=== PATIENT | female | born 1945 | race Caucasian/White ===

== ENCOUNTER 2024-08-20 22:34 | Inpatient (IN) | payer MEDICARE, OTHER, SELFPAY ==
[2024-08-20] VITALS (7 sets, daily range): BP systolic 120–144; BP diastolic 63–77; BMI 48.0
--- NOTE | 2024-08-20 16:18 | ED.PDOC.TRB ---
ED Provider Triage
-
Patient seen by provider in Triage?: Seen in Triage
Attestation: A medical screening examination has been initiated by a qualified medical provider. Based on the assessment performed at this time, it has been determined that an emergent medical condition may exist and the patient has been informed
that further medical evaluation and possible additional diagnostic testing may be needed.
HPI: 79yoF here with positive blood cultures as an outpatient. She reports SOB x 6 months. No fevers or chills. I called the PCP's office and 1 blood culture was checked last week which was positive for gram positive cocci in clusters.
GENERAL: Alert , in no apparent distress
EYE: No visual abnormalities.
NECK: Trachea midline
ENT: No visible abnormalities.
LUNGS: No acute respiratory distress
NEUROLOGICAL: Alert and oriented
SKIN: Skin intact. No visible changes.
MUSCULOSKELETAL: Moving extremities normally
PSYCH: Normal and appropriate interaction.
This is a medical evaluation conducted in person to initiate diagnostic evaluation and provide initial therapeutics. Please see further documentation by the treating clinician.
CBC and CMP ordered.
[2024-08-20 16:43] LABS: % Basophils 0.7 % (0-2); % Eosinophils 0.7 % (0-6); % Lymphocytes 10.6 % (20.5-51.1); % Monocytes 5.7 % (1.7-9.3); % Neutrophils 81.3 % (42.2-75.2); Absolute Basophils 0.1 10^3/uL (0-0.2); Absolute Eosinophils 0.1 10^3/uL (0-0.7); Absolute Immature Granulocytes 0.1 10^3/uL (0-0.05); Absolute Lymphocytes 1.4 10^3/uL (1.2-3.4); Absolute Monocytes 0.8 10^3/uL (0.1-0.6); Absolute Neutrophils 10.9 10^3/uL (1.4-6.5); Hematocrit 33.1 % (37.0-47.0); Mean Corp Hgb Conc. 33.2 g/dL (33.0-37.0); Mean Corpuscular Hgb 27.6 pg (27.0-31.0); Nucleated Red Blood Cells % 0 %; Red Blood Cell Count 3.99 10^6/uL (4.20-5.40); Red Cell Dist. Width 15.7 % (11.5-14.5); White Blood Cell Count 13.4 10^3/uL (4.8-10.8)
[2024-08-20 17:14] LABS: Mean Platelet Volume 9.4 fL (7.4-10.4); Platelet Count 257 10^3/uL (130-400)
[2024-08-20 17:21] LABS: ALT (SGPT) 15 U/L (0-35); AST (SGOT) 39 U/L (14-36); Albumin 4.2 g/dl (3.5-5.0); Alkaline Phosphatase 112 U/L (38-126); Blood Urea Nitrogen 22 mg/dl (7-17); Calcium 9.4 mg/dl (8.4-10.2); Carbon Dioxide 21 mmol/L (22-30); Chloride 103 mmol/L (98-107); Glucose 126 mg/dl (70-99); Potassium 4.7 mmol/L (3.5-5.1); Sodium 140 mmol/L (135-145); Total Bilirubin 0.7 mg/dl (0.2-1.3); Total Protein 7.4 g/dl (6.3-8.2); eGFR 58.02
[2024-08-20 21:13] LABS: Lactic Acid 1.1 mmol/L (0.7-2.0)
[2024-08-20 21:17] LABS: NT-proBNP 367 pg/ml; Troponin I < 0.012 ng/ml
--- NOTE | 2024-08-20 21:19 | ED.GENMED ---
History of Present Illness
General
Chief Complaint: Breathing Problem
Source: patient and family
Exam Limitations: none
Time Seen by Provider: 08/20/24 19:51
Nursing documentation reviewed up to this point in time: agreed with
History of Present Illness
History of Present Illness:
The patient is a 79-year-old female past medical history of hypertension GERD, pulmonary fibrosis presenting to the emergency department today after being called and told that she had a positive blood culture done as an outpatient by her internal
medicine doctor that works with an. She claims that she has had shortness of breath over the past few months worsening over the past few weeks and has significant decreased exercise tolerance. She had an assessment by a youth care specialist as well as
primary care doctor. She ended up having an echocardiogram recently that showed a vegetation on the mitral valve. They were concerned of possible endocarditis and sent her to the ER for further assessment. She denies any specific fevers no
current chest pain does feel somewhat shortness of breath even at rest but significantly with exertion at this point. Has noted some vague peripheral swelling over the past few months as well.
Review of Systems
Review of Systems
Allergies reviewed?: Yes
All Other Systems: ROS reviewed and negative except as documented in HPI and ROS
Phy Exam
Physical Exam
Physical Exam:
GENERAL: Alert , in no apparent distress
EYE: pupils equal and reactive
NECK: Supple, no significant adenopathy.
ENT: o/p clr, mmm.
CARDIAC: Regular rate and rhythm .
LUNGS: Clear breath sounds bilaterally, no acute respiratory distress, no wheezes/rales/rhonchi
ABDOMEN: Soft, without focal tenderness, no r/g, no cvat
NEUROLOGICAL: Alert and oriented, no focal neuro deficits
SKIN: Warm and dry, skin intact.
MUSCULOSKELETAL: [place]man of edema to the peripheral lower extremities, well perfused.
PSYCH: Normal and appropriate interaction.
Scores
Heart Failure Risk
Heart Failure Risk Score: Not Applicable
Course
Orders/Labs/Results
Orders:
Orders
08/20/24 16:26
Complete Blood Count/With Diff Urgent
Comprehensive Metabolic Panel Urgent
08/20/24 20:17
EKG [Electrocardiogram (*1)] Urgent
Reason for Study: Fatigue / Weakness
EKG- Treatment ONCE
08/20/24 20:39
BNP [NT-proBNP] Urgent
Lactic Acid Urgent
Troponin I Urgent
Blood Culture Urgent
SPENCER Source: Blood/Venous
Specimen Description:
08/20/24 20:43
Blood Culture Routine
SPENCER Source: Blood/Venous
Specimen Description:
08/20/24 20:55
Vancomycin [Vancocin] 2,000 mg 0.9% Sodium Chloride 500 ml [Nss] 500 ml IV NOW
08/20/24 21:17
Blood Culture Urgent
SPENCER Source: Blood/Venous
Specimen Description:
Abnormal Lab Results
08/20/24
16:26
WBC 13.4 H 10^3/uL
(4.8-10.8)
RBC 3.99 L 10^6/uL
(4.20-5.40)
Hgb 11.0 L g/dL
(12.0-16.0)
Hct 33.1 L %
(37.0-47.0)
RDW 15.7 H %
(11.5-14.5)
Abs Immat Gran (auto) 0.1 H 10^3/uL
(0-0.05)
Absolute Neuts (auto) 10.9 H 10^3/uL
(1.4-6.5)
Absolute Monos (auto) 0.8 H 10^3/uL
(0.1-0.6)
Immature Gran % 1.0 H %
(0-0.5)
Neutrophils % 81.3 H %
(42.2-75.2)
Lymphocytes % 10.6 L %
(20.5-51.1)
Carbon Dioxide 21 L mmol/L
(22-30)
BUN 22 H mg/dl
(7-17)
Glucose 126 H mg/dl
(70-99)
AST 39 H U/L
(14-36)
08/20/24 16:26
08/20/24 16:26
Vital Signs
Initial and Last Documented VS:
Initial Vital Signs
Temp Pulse Resp BP Pulse Ox
97.8 F 79 16 138/71 99
08/20/24 16:11 08/20/24 16:11 08/20/24 16:11 08/20/24 16:11 08/20/24 16:11
Last Documented Vital Signs
Temp Pulse Resp BP Pulse Ox
97.8 F 77 25 131/65 95
08/20/24 16:11 08/20/24 19:45 08/20/24 19:45 08/20/24 19:38 08/20/24 19:45
MDM/Problems Addressed
MDM/Problems Addressed:
79-year-old female presenting to the emergency department today with concerns of a positive blood culture with gram-positive cocci in clusters as well as a echo a few days ago that showed a vegetation potentially on the mitral valve. Patient has
had progressive shortness of breath recently. On arrival vital signs are normal patient in no distress does claim to have ongoing shortness of breath. No chest no specific fevers white count of 13.4 here otherwise troponin negative. Concerning
the patient's outpatient findings plan to admit for IV antibiotics and further monitoring and assessment.
*Critical Care Note
Total Time (30-74mins, 75-104mins- exclusive of procedures): Not Applicable
ED Attending Note
-
Portions of this chart may have been created with voice recognition software.� Occasional wrong word or��sound alike� substitutions may have occurred due to the inherent limitations of voice recognition software.
Discharge Plan
Departure
Patient Disposition: Admit
Date of Disposition: 08/20/24
Time of Disposition: 21:21
Admit to: Telemetry
Admit to doctor: Yann
Presentation/result/management discussed w/ accepting MD/DO: Hospitalist
Patient with high blood pressure during this ER visit?: No
Condition: Good
Covid-19: Not Applicable
Discharge Problem:
Mitral valve vegetation, Blood bacterial culture positive
Prescriptions:
No Action
spironolacton-hydrochlorothiaz 25-25 mg Tablet
1 tab PO DAILY
pramipexole 0.5 mg Tablet
0.5 mg PO HS
lansoprazole 30 mg Capsule,Delayed Release(Dr/Ec)
30 mg PO BID
verapamil 240 mg Tablet Extended Release
240 mg PO DAILY
montelukast 10 mg Tablet
10 mg PO HS
fluticasone propionate [Flonase] 50 mcg/actuation [place],Suspension
1 spray INTRANASAL HSPRN PRN (Reason: conjestion)
loratadine [Claritin] 10 mg Tablet
10 mg PO DAILY
potassium chloride [Klor-Con M10] 10 mEq Tablet,Er Particles/Crystals
10 meq PO DAILY
duloxetine 20 mg Capsule,Delayed Release(Dr/Ec)
20 mg PO DAILY
fluconazole 150 mg Tablet
150 mg PO DAILY
Patient Comments:
08/20/24: Unsure if patient takes this medication still, no pharmacy fill records or eCW records of patient taking this.
Interventions
Interventions:
*ED COVID-19 Vaccine History Last Done: 08/20/24 16:16
Discharge Date and Time
Print Language: UZBEK
--- NOTE | 2024-08-20 21:31 | W.PN.UPDATE ---
Update Note
Progress Note Update
This note serves as an addendum to the H&P by pinsetter mechanic helper KAREN Patience BARROSO
HPI
79F HX HTN, GERD came to ER for POS BCx sent as an outpatient.
- retrospectively reports SOB x 6 months.
- Denied fever at home but reports chills. No rigors
- PCP's office: single BCx was sent. POS for gram positive cocci in clusters.
- No recent dental procedure
Per OP ECHO: pending official report but told potential Mitral valve vegetation.
PHX: as above
Vital Signs
Temp Pulse Resp BP Pulse Ox
97.8 F 77 25 131/65 95
08/20/24 16:11 08/20/24 19:45 08/20/24 19:45 08/20/24 19:38 08/20/24 19:45
PE
Gen: Morbidly Obese , not toxic looking
HEENT: anicteric
Neck: supple, no LAD
Lungs: symmetric AE
Cor: RR S1 S2
Abdomen: obese
TELEPHONE STATION REPAIRER: AAO3, NFND
MS: no peripheral signs of endocarditis
Psych: appropriates
Data
Laboratory Tests
08/20/24 08/20/24
16:26 20:39
WBC 13.4 H
Hgb 11.0 L
Plt Count 257
Neutrophils % 81.3 H
Carbon Dioxide 21 L
BUN 22 H
Creatinine 1.0
eGFR 58.02
Lactic Acid Pending
Pending LA
Pending proBNP
BCX time 3 sent
No prior hospitalist admission:
ASSESSMENT & PLAN
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
OP ECHO : potential Mitral valve vegetation.
Clinically no peripheral signs of endocarditis
DDX: MV endocarditis
Hemodynamically stable
- Repeat BCx times 3 sent
- check UA for microscopic hematuria
- Empiric IV Cefazolin in place of Vanco
- Obtain records form PCP office
- CBC Card consult for further evalaution for MERARY ?
- ID consult
HX vagina yeast infection with any ABx
- cont. OP Fluconazole
HX BRANDI
Morbidly Obese/ Class III Obesity ( BMI 48)
- cont CPAP HS
HX HTN
- cont. Spironolactone and verapamil
DVT Px: SQH
Full code
IP TLM
[2024-08-20] MEDS: VANCOCIN 540 MG IV (21:41)
--- NOTE | 2024-08-20 21:47 | HPS.HSE ---
Family Physician
-
Family Physician:
Chief Complaint
-
Positive blood cultures
History of Present Illness
Patient is a 79 y/o female past medical history of hypertension, and obstructive sleep apnea who was sent from her primary cardiologists office for positive blood cultures. Patient has been undergoing work-up for chronic shortness of breath. On
Tuesday she has an echocardiogram that raised concern for a possible vegetation on the mitral valve. Patient has blood cultures drawn on Tuesday, and then received a call the blood cultures were positive and to go to the emergency department for
evaluation. Patient denies any fevers, sweats, chills, chest pain or palpitations. She reports dental work completed last year that all has to be redone, but denies any recent dental cleanings.
Medical History
Past Medical History
Past Medical History: Reports Other
Additional Past Medical History:
Diabetes Mellitus, Type II
Essential Hypertension
Obstructive Sleep Apnea
GERD
Restless Leg Syndrome
Past Surgical History: Reports Other
Additional Past Surgical History:
Back Surgery
Social History
Tobacco: Non-smoker
Alcohol: Other (Once a year)
Living: With Family
Family History
Family History: Not pertinent
Allergies / Home Medications
Allergies reflects when Allergies were last updated in [employer].
Home Medications with original date entered in [employer]
Allergy/Medication List:
Allergies
Allergy/AdvReac Type Severity Reaction Status Date / Time
adhesive Allergy Unknown Verified 08/20/24 16:10
Home Medications
duloxetine 20 mg capsule,delayed release 20 mg PO DAILY 08/20/24
fluconazole 150 mg tablet 150 mg PO DAILY 08/20/24
fluticasone propionate 50 mcg/actuation nasal spray,suspension 1 spray intranasal HSPRN PRN conjestion 08/20/24
lansoprazole 30 mg capsule,delayed release 30 mg PO BID 08/20/24
loratadine 10 mg tablet (Claritin) 10 mg PO DAILY 08/20/24
montelukast 10 mg tablet 10 mg PO HS 08/20/24
potassium chloride 10 mEq tablet,extended release(part/cryst) (Klor-Con M) 10 meq PO DAILY 08/20/24
pramipexole 0.5 mg tablet 0.5 mg PO HS 08/20/24
spironolactone 25 mg-hydrochlorothiazide 25 mg tablet 1 tab PO DAILY 08/20/24
verapamil 240 mg tablet,extended release 240 mg PO DAILY 08/20/24
Review of Systems
-
A 12 point ROS was completed and negative except as noted: Yes
Constitutional: Denies Fever or Chills
Respiratory: Reports Cough and Trouble Breathing
Cardiac: Denies Chest Pain or Palpitations
Physical Exam
Vital Signs
Vital Signs
Temp Pulse Resp BP Pulse Ox
97.8 F 77 25 131/65 95
08/20/24 16:11 08/20/24 19:45 08/20/24 19:45 08/20/24 19:38 08/20/24 19:45
Physical Exam
General: Comfortable and Conversant
HEENT: Anicteric, Moist mucous membranes and Other (Poor Dentition)
Respiratory: Clear and Non Labored Respirations
Cardiac: S1/S2 and Regular Rhythm
GI: Soft, Non Tender and Other (Protuberant)
Rectal: Deferred by Provider
Musculoskeletal: No Clubbing, No Cyanosis and Other (+2 edema bilateral lower extremities)
Skin: Warm and Dry
Neuro: Awake, Alert, Oriented and Nonfocal/grossly intact
Laboratory Results
-
08/20/24 16:26
08/20/24 16:26
Laboratory Results
Lactic Acid 1.1 mmol/L (0.7-2.0) 08/20/24 20:39
Total Bilirubin 0.7 mg/dl (0.2-1.3) 08/20/24 16:26
AST 39 U/L (14-36) H 08/20/24 16:26
ALT 15 U/L (0-35) 08/20/24 16:26
Alkaline Phosphatase 112 U/L (38-126) 08/20/24 16:26
Troponin I < 0.012 ng/ml 08/20/24 20:39
Data Reviewed
-
Lab Data: Labs Reviewed by me
Old Records: Reviewed
Impression/Plan
-
Blood Cultures with Gram Positive Cocci in Cluster with associated Mitral Valve Echodensity raises concern for Endocarditis
-Consult Infectious Disease
-Consult Cardiology
-Obtain repeat blood cultures
-NPO after midnight for possible MERARY in AM
-Continue Ancef
Diabetes Mellitus, Type II
-Diet controlled per outpatient cardiology note
-Check HgbA1c
-Monitor sugars and continue coverage insulin
Essential Hypertension
-Continue Spironolactone/hydrochlorothiazide and Verapamil
Restless Leg Syndrome
-Continue pramipexole
GERD
-Continue Protonix
Obstructive Sleep Apnea
-Patient will bring CPAP from home
Obesity Class III
-Affects all aspects of care
DVT Proph: Lovenox
Code Status: Full Code
--- NOTE | 2024-08-20 21:56 | EDRN ---
Jocelynwick placed, patient pulled up in bed as well, patient provided with a sandwich, aware she is waiting on a bed at this time, call kim in reach.
[2024-08-20 22:58] LABS: Urine Albumin Negative (Neg - Trace); Urine Bilirubin Negative (Negative); Urine Character Clear (Clear); Urine Color Yellow; Urine Glucose Negative (Negative); Urine Ketone Negative (Negative); Urine Leukocyte 1+ (Negative); Urine Nitrite Negative (Negative); Urine Occult Blood Negative (Negative); Urine Specific Gravity 1.015 (<1.030); Urine Urobilinogen Negative (Neg - 1+)
[2024-08-20 23:10] LABS: Urine Red Blood Cell 0-2 /HPF (0-2)
[2024-08-20 23:11] LABS: Urine Bacteria Many (Negative)
[2024-08-21] VITALS (10 sets, daily range): BP systolic 116–148; BP diastolic 60–74; PULSE 75–78; O2SAT 95; BMI 46.6
--- NOTE | 2024-08-21 00:24 | RESPNOTE ---
pt has an order to wear home CPAP unit, however she did not bring it in. She does not wish to wear a hospital unit tonight. She also stated she uses O2 through her CPAP at home when she sleeps. I placed her on 2 lpm nasal cannula for night. Pt
stated she will have family bring in her home unit on 08/21/2024. RN made aware
[2024-08-21] MEDS: SINGULAIR 10 MG PO ×2 (00:31→20:02)
[2024-08-21] MEDS: MIRAPEX, GENERIC 0.5 MG PO ×2 (00:31→20:02)
[2024-08-21] MEDS: ANCEF 10 IV ×2 (01:35→08:02)
--- NOTE | 2024-08-21 03:28 | TRANSFER ---
pt received from ED via stretcher. pt was a machine puller over from the stretcher to bed. AAOx3, VSS. came up with kimberlyo running in L AC. oriented to room, call kim within reach. plan of care ongoing.
[2024-08-21 07:54] LABS: Glucose - Point of Care 109 mg/dl (70-99)
[2024-08-21] MEDS: TYLENOL 650 MG PO ×2 (07:59→13:20)
[2024-08-21] MEDS: NOVOLOG FLEXPEN-LOW RESISTANCE SC ×3 (08:01→17:19)
[2024-08-21] MEDS: CALAN EXTENDED RELEASE 240 MG PO (08:03)
[2024-08-21] MEDS: CYMBALTA DELAYED RELEASE 20 MG PO (08:03)
[2024-08-21] MEDS: PROTONIX 40 MG PO ×2 (08:03→20:02)
[2024-08-21] MEDS: ALDACTONE 25 MG PO (08:03)
[2024-08-21] MEDS: KCL 10 MEQ PO (08:04)
[2024-08-21] MEDS: CLARITIN 10 MG PO (08:04)
[2024-08-21 08:23] LABS: Hemoglobin 9.5 g/dL (12.0-16.0); Mean Corp Hgb Conc. 32.8 g/dL (33.0-37.0); Mean Corpuscular Volume 85.5 fL (81.0-99.0); Mean Platelet Volume 9.2 fL (7.4-10.4); Platelet Count 334 10^3/uL (130-400); Red Blood Cell Count 3.39 10^6/uL (4.20-5.40); Red Cell Dist. Width 15.8 % (11.5-14.5); White Blood Cell Count 11.3 10^3/uL (4.8-10.8)
--- NOTE | 2024-08-21 08:30 | W.PN.HOSP.TC ---
Addendum entered and electronically signed by Flako Eduardo MD 08/21/24 15:20:
79-year-old with positive blood cultures. Patient was sent in by primary paramedic rn for positive blood cultures. She had an echo which raised concern for possible vegetation on mitral valve
I personally performed a history and physical exam of the patient and discussed management with the resident. I reviewed the resident's note and agree with the documented findings and plan of care HPI/CC except for changes in my documentation.
EKG reviewed by me-sinus rhythm inferior infarct age undetermined
CVS: S1-S2 normal, sm at apex
Chest: CTA B/L
Abdomen: Soft, NT / Bowel sounds present
Extremities: No edema, normal pulses
SENIOR NUCLEAR MEDICINE TECHNOLOGIST: Non focal exam
# Endocarditis
Gram-positive cocci in clusters per OP report
Continue Ancef
Repeat blood cultures pending.
MERARY with mobile vegetation- CTS consulted
#Anemia- Check iron and B12
# Diabetes diet controlled
Accu-Cheks and sliding scale coverage
Hemoglobin A1c 5.9
# Abnormal urinalysis
# Hypertension-continue Aldactone, hydrochlorothiazide and verapamil
# Mildly elevated AST-follow
# Restless leg syndrome-continue pramipexole
# Sleep apnea-CPAP to be continued
# GERD-continue Protonix
# Obesity with a BMI of 46
# DVT prophylaxis-Lovenox
# Full code
D/W Cards
D/W RN
D/W Daughter on the phone and updated.
Original Note:
Today's Communication/Plan
-
.
Assessment / Plan
Assessment / Plan
Impression/plan
79-year-old female with past medical history hypertension, GERD presents to the ER from PCPs office after blood cultures were positive for gram-positive cocci in clusters. Her PCP was doing a workup for ongoing shortness of breath for the past 6
months. Echocardiogram from pain shows she has normal biventricular function with mild mitral regurgitation and a mobile echodensity on the mitral valve which could be an extension of complex caseous mitral annular calcification or vegetation. Her
primary care doctor then ordered blood cultures which she had done at [facility] and were reportedly positive for gram-positive cocci. Denies fever, chills. Denies recent dental work.
#Concern for endocarditis
-single BCx done in PCP's office. Positive for gram positive cocci in clusters.
-MERARY today 08/21 revealed a small, highly mobile vegetation on the ventricular surface of the posterior mitral valve leaflet apparatus. No evidence of perivalvular extension or significant valve dysfunction.
-Follow blood cultures daily, BC pending
-Infectious disease input appreciated, on IV cefazolin
-Cardiology consulted, input appreciated
-CT surgery consulted, pending eval.
#Diabetes Mellitus, Type II
-HgbA1c 5.9
-Monitor sugars and continue coverage insulin
#Essential Hypertension
-Continue home Spironolactone and Verapamil
#Restless Leg Syndrome
-Continue pramipexole
#GERD
-Continue Lansoprazole
#Obstructive Sleep Apnea
-Continue CPAP
DVT Proph: Lovenox
Code Status: Full Code
Anticipated Discharge: > 48 hours
Subjective/Interval History
-
Date of Service: August 21, 2024
Objective Data
-
Labs:
Laboratory Results
08/21/24 08/21/24
07:23 07:29
WBC 11.3 H
Hgb 9.5 L
Hct 29.0 L
Plt Count 334 D
Sodium Pending
Potassium Pending
Chloride Pending
Carbon Dioxide Pending
BUN Pending
Creatinine Pending
Glucose Pending
Calcium Pending
Vital Signs:
Vital Signs
Temp Pulse Resp BP Pulse Ox
98 F 67 18 130/71 98
08/21/24 07:56 08/21/24 07:56 08/21/24 07:56 08/21/24 07:56 08/21/24 07:56
I&O
08/20/24 08/21/24 08/22/24
06:59 06:59 06:59
Output Total 350 / 350
Balance -350 / -350
Review of Systems
-
All other systems: Reviewed and negative (Except as documented)
Physical Exam
-
General: No Apparent Distress
Respiratory: Clear to Auscultation
Cardiac: Regular Rhythm, S1/S2 and Murmur
GI: Soft, Nontender and Nondistended
--- NOTE | 2024-08-21 08:52 | CON.CAR ---
Addendum entered and electronically signed by Flako Eduardo MD 08/21/24 15:20:
79-year-old with positive blood cultures. Patient was sent in by primary icing and glaze maker for positive blood cultures. She had an echo which raised concern for possible vegetation on mitral valve
I personally performed a history and physical exam of the patient and discussed management with the resident. I reviewed the resident's note and agree with the documented findings and plan of care HPI/CC except for changes in my documentation.
EKG reviewed by me-sinus rhythm inferior infarct age undetermined
CVS: S1-S2 normal, sm at apex
Chest: CTA B/L
Abdomen: Soft, NT / Bowel sounds present
Extremities: No edema, normal pulses
LAMP SHADE JOINER: Non focal exam
# Endocarditis
Gram-positive cocci in clusters per OP report
Continue Ancef
Repeat blood cultures pending.
MERARY with mobile vegetation- CTS consulted
#Anemia- Check iron and B12
# Diabetes diet controlled
Accu-Cheks and sliding scale coverage
Hemoglobin A1c 5.9
# Abnormal urinalysis
# Hypertension-continue Aldactone, hydrochlorothiazide and verapamil
# Mildly elevated AST-follow
# Restless leg syndrome-continue pramipexole
# Sleep apnea-CPAP to be continued
# GERD-continue Protonix
# Obesity with a BMI of 46
# DVT prophylaxis-Lovenox
# Full code
D/W Cards
D/W RN
D/W Daughter on the phone and updated.
Original Note:
Consultation
Consultation Request
Date/Time Consultation Requested: 08/20 23:00
Date/Time Consultation Performed: 08/21 8:30
Requesting Provider: Jenni Ferrari
Performing Provider: Alexis Matthews
Reason for Consultation: concern for endocarditis
Medical History
-
Chief Complaint: concern for endocarditis
History of Present Illness:
79 y/o female past medical history of hypertension, and obstructive sleep apnea who was sent from her primary care doctor's office for positive blood cultures. Patient Reports that she has been feeling short of breath for the past 6 months. Her
primary care doctor ordered an echocardiogram which she had done last week. The report from [place] shows that she has normal biventricular function with mild mitral regurgitation and a mobile echodensity on the mitral valve which could be an
extension of complex caseous mitral annular calcification or vegetation. Her primary care doctor then ordered blood cultures which she had done at [facility] and were reportedly positive for gram-positive cocci. She has not had any recent infectious
symptoms, dental work, IV drug use, or skin and soft tissue infection. She has no history of heart disease and no notable family history of heart disease. She takes spironolactone/hydrochlorothiazide and verapamil for hypertension.
Past Medical History
Past Medical History: HTN and Other (BRANDI)
Social History
Drug: None
Employment: Retired
Family History
Family History: Reviewed & Not Pertinent
Allergies / Home Medications
Allergy/AdvReac Type Severity Reaction Status Date / Time
adhesive Allergy Unknown Verified 08/20/24 16:10
�Medication �Instructions �Recorded �Confirmed �Type
duloxetine 20 mg capsule,delayed 20 mg PO DAILY 08/20/24 08/20/24 History
release
fluconazole 150 mg tablet 150 mg PO DAILY 08/20/24 History
fluticasone propionate 50 1 spray intranasal HSPRN PRN 08/20/24 08/20/24 History
mcg/actuation nasal conjestion
spray,suspension
lansoprazole 30 mg capsule,delayed 30 mg PO BID 08/20/24 08/20/24 History
release
loratadine 10 mg tablet (Claritin) 10 mg PO DAILY 08/20/24 08/20/24 History
montelukast 10 mg tablet 10 mg PO HS 08/20/24 08/20/24 History
potassium chloride 10 mEq 10 meq PO DAILY 08/20/24 08/20/24 History
tablet,extended
release(part/cryst) (Klor-Con M)
pramipexole 0.5 mg tablet 0.5 mg PO HS 08/20/24 08/20/24 History
spironolactone 25 1 tab PO DAILY 08/20/24 08/20/24 History
mg-hydrochlorothiazide 25 mg tablet
verapamil 240 mg tablet,extended 240 mg PO DAILY 08/20/24 08/20/24 History
release
Review of Systems
-
History Source: Patient
All other systems: Negative unless noted
Physical Exam
Vital Signs
Temp Pulse Resp BP Pulse Ox
98 F 67 18 130/71 98
08/21/24 07:56 08/21/24 07:56 08/21/24 07:56 08/21/24 07:56 08/21/24 07:56
Lab Results
08/21/24 07:29
Troponin I < 0.012 ng/ml 08/20/24 20:39
[id number] Pept 367 pg/ml 08/20/24 20:39
Physical Exam
General: Well Developed and Well Nourished
Cardiac: S1/S2, Regular Rhythm and Murmur (soft 2/6 systolic murmur)
Musculoskeletal: No Edema
Neuro: AO x 3
Impression / Plan
-
79 y/o female past medical history of hypertension, and obstructive sleep apnea here with concern for endocarditis.
Concern for endocarditis:
- MERARY today
- continue antibiotics per ID
- follow blood cultures daily
Hypertension
- Continue home Spironolactone and Verapamil
BRANDI
- Contiue CPAP
Data Reviewed
-
EKG: Tracing Personally Visualized and interpreted
Labs: Labs Reviewed by me
Old Records: Reviewed
Total Time Spent with Patient (in minutes): 10
[2024-08-21] MEDS: LIDOCAINE 4% PATCH 1 PATCH TOPICAL (10:10)
--- NOTE | 2024-08-21 12:29 | W.PN.UPDATE ---
Update Note
Progress Note Update
-MERARY today revealed a small, highly mobile vegetation on the ventricular surface of the posterior mitral valve leaflet apparatus. No evidence of perivalvular extension or significant valve dysfunction.
-Recommend CT Surgery input, given highly mobile nature of the vegetation.
--- NOTE | 2024-08-21 12:31 | CON.ID ---
Consultation
-
Date/Time Consultation Requested: 08/20/2024 2330
Date/Time Consultation Performed: 08/21/2024 1227
Requesting Provider: Jenni Ferrari PA-C
Performing Provider: Dr. Saucedo
Reason for Consultation: Bacteremia; possible endocarditis
Chief Complaint / Past History
History of Present Illness
Adamaris Armendariz is a 79-year-old female being evaluated regarding possible endocarditis. History is obtained from chart review, along with patient interview.
The patient reports that she has had underlying shortness of breath for many years, but it has grown worse in the past 6 months. She notes that she previously was followed by Pulmonary, but recently changed specialists and has been seen by
cardiology at [facility]. She recently underwent an outpatient echocardiogram which was suggestive of a mitral valve vegetation. She was sent for blood cultures, which reportedly are now positive. She was sent into the emergency room for
further evaluation and workup.
She denies any recent fevers or chills. She denies any night sweats.
Past History
Additional Past Medical History:
HTN
GERD
Pulmonary fibrosis
BRANDI
DM type II
restless leg syndrome
Additional Past Surgical History:
Back surgery
Allergy History:
adhesive Allergy (Verified 08/20/24 16:10)
Unknown
Current Antibiotics:
Cefazolin 2 g IV every 8 hours
Social History
Tobacco: Non-Smoker
Alcohol: None
Drug: None
Living: With Family
Employment: Retired
Family History
Family History: Not Pertinent
Review of Systems
Vital Signs
Temp Pulse Resp BP Pulse Ox
98 F 67 18 130/71 97
08/21/24 07:56 08/21/24 07:56 08/21/24 07:56 08/21/24 07:56 08/21/24 08:00
Physical Exam
Physical Exam
Constitutional: No Acute Distress, Comfortable, Chronically Ill, Non-toxic and Obese
Eyes: No Conjunctival Hemorrhage and Sclera Anicteric
Oral: No Thrush and No Ulcers
Cardiovascular: Regular Rate and S1/S2; Negative S3/S4 or Murmur
Pulmonary: Clear; Negative Wheezes, Rales or Rhonchi
Gastrointestinal: Soft, Non Tender, Non Distended and Normal Bowel Sounds
Extremities: Edema; Negative Cyanosis, Erythema, Splinter Hemorrhage or Janeway Lesions
Musculoskeletal: Negative Joint Effusion or Spinal Tenderness
Skin: Warm and Dry; Negative Rash or Jaundice
Neurological: Awake and Alert
Psychological: Calm
.
Lab / Diagnostic Study Results
08/21/24 07:29
Abs Immat Gran (auto) 0.1 10^3/uL (0-0.05) H 08/20/24 16:26
Absolute Neuts (auto) 10.9 10^3/uL (1.4-6.5) H 08/20/24 16:26
Absolute Lymphs (auto) 1.4 10^3/uL (1.2-3.4) 08/20/24 16:26
Absolute Monos (auto) 0.8 10^3/uL (0.1-0.6) H 08/20/24 16:26
Absolute Basos (auto) 0.1 10^3/uL (0-0.2) 08/20/24 16:26
Immature Gran % 1.0 % (0-0.5) H 08/20/24 16:26
Neutrophils % 81.3 % (42.2-75.2) H 08/20/24 16:26
Lymphocytes % 10.6 % (20.5-51.1) L 08/20/24 16:26
Monocytes % 5.7 % (1.7-9.3) 08/20/24 16:26
Eosinophils % 0.7 % (0-6) 08/20/24 16:26
Basophils % 0.7 % (0-2) 08/20/24 16:26
Lactic Acid 1.1 mmol/L (0.7-2.0) 08/20/24 20:39
Microbiology Results
Micro:
08/20/24 22:52 Urine Culture - Pending
Urine
08/20/24 21:13 Blood Culture - Pending
Blood/Venous
08/20/24 21:13 Blood Culture - Pending
Blood/Venous
08/20/24 20:39 Blood Culture - Pending
Blood/Venous
Imaging:
08/21/2024 ECHO (MERARY): A small, highly mobile vegetation on the ventricular surface of the posterior mitral valve leaflet is noted. No evidence of perivalvular extension or significant valve dysfunction noted. Please see full dictation for
additional detail.
08/16/2024 ECHO (TTE): LVEF approximately 63%. Right ventricle not well-visualized. Left atrium moderately dilated. There is mild mitral valve leaflet thickening with moderate posterior mitral annular calcification. There is mild mitral
regurgitation and the noted is a mobile echodensity measuring 0.8 x 0.8 cm which appears to be attached to the ventricular surface of the calcified posterior mitral annulus, which could be an extension of complex caseous mitral annular
calcification, or vegetation. Please see full dictation for additional detail. (Film performed at [place] @ [place])
Assessment / Plan
Suspected infectious endocarditis (negative mitral valve)
Outpatient blood culture positive for Staphylococcus epidermidis (single set)
Leukocytosis
Chronic SOB
HTN
GERD
Pulmonary fibrosis
BRANDI
DM type II
restless leg syndrome
Recommendations:
Will continue with empiric therapy, but transition to ceftriaxone 2 g IV every 12 hours and vancomycin.
Will attempt to get outpatient culture results.
Blood cultures have been obtained prior to the initiation of antibiotics here.
Check ESR and CRP.
Await further input from CT Surgery
[2024-08-21 13:33] LABS: Glycohemoglobin (HgbA1c) 5.9 % (4.0-5.6)
[2024-08-21 13:43] LABS: Glucose - Point of Care 106 mg/dl (70-99)
[2024-08-21 14:22] LABS: Blood Urea Nitrogen 18 mg/dl (7-17); Calcium 9.5 mg/dl (8.4-10.2); Carbon Dioxide 23 mmol/L (22-30); Chloride 104 mmol/L (98-107); Estimated Creatinine Clearance 74 ml/min; Glucose 105 mg/dl (70-99); Potassium 3.8 mmol/L (3.5-5.1); Sodium 139 mmol/L (135-145); eGFR > 60.00
--- NOTE | 2024-08-21 14:35 | CONSULT.CT ---
Consultation
-
Date/Time Consultation Requested: 08/21/2024
Date/Time Consultation Performed: 08/21/2024
Requesting Provider: Dr. Gilman
Performing Provider: Shala barboza
Reason for Consultation: MV endocarditis
Patient History
Physicians
Family Physician: Dr. Edgar [facility] @[place]
Inpatient Photolith Operator: Dr. Gilman
History of Present Illness
Patient is a 79-year-old female with a past medical history of hypertension, obstructive sleep apnea, GERD, osteoarthritis, degenerative joint disease who was sent from her primary care physician's office after having a reportedly positive blood
culture. Blood culture was reportedly positive for gram-positive cocci. She denies any recent infectious symptoms such as chills fever, recent dental work, skin and soft tissue infections. Her only complaint has been increasing shortness of
breath which has increased over the past 6 months. She also complains of lower extremity edema which seems like it has increased in severity. She was admitted to [facility] and started on a regimen of IV antibiotics by infectious disease.
Echocardiogram performed showed a highly mobile vegetation on the posterior leaflet of the mitral valve.
Plan to continue IV antibiotics with follow-up blood cultures this week. No significant valvular dysfunction noted on echocardiogram.
Cardiothoracic surgery consulted for mitral valve replacement. Will continue IV antibiotics and repeat cultures this week. Preoperative studies will also be ordered. She will also have a Panorex to evaluate dentition. All studies to be reviewed
by attending cardiothoracic surgeons and will follow-up later this week.
Past Medical History
Past Medical History: HARVEY, GERD, HTN and BRANDI
Past medical history significant for hypertension
Pulmonary fibrosis
Obstructive sleep apnea
Morbid obesity
GERD
Degenerative joint disease
Osteoarthritis
Past Surgical History
Past Surgical History: (Reports x 2) and Orthopedic (Back surgery at [facility])
Dental History
Denies any recent dental work
Family History
Mother: at Age
Father: at Age
Social History
Alcohol: None
Drug: None
Tobacco: Non-Smoker
Employment: Retired
Allergies
Allergy/AdvReac Type Severity Reaction Status Date / Time
adhesive Allergy Unknown Verified 08/20/24 16:10
Home Medications
�Medication �Instructions �Recorded �Confirmed �Type
duloxetine 20 mg capsule,delayed 20 mg PO DAILY Mental 08/20/24 08/20/24 History
release Health/Anxiety
fluconazole 150 mg tablet 150 mg PO DAILY ANTIFUNGAL 08/20/24 History
fluticasone propionate 50 1 spray intranasal HSPRN PRN 08/20/24 08/20/24 History
mcg/actuation nasal conjestion
spray,suspension
lansoprazole 30 mg capsule,delayed 30 mg PO BID GERD 08/20/24 08/20/24 History
release
loratadine 10 mg tablet (Claritin) 10 mg PO DAILY Allergies 08/20/24 08/20/24 History
montelukast 10 mg tablet 10 mg PO HS ASTHMA 08/20/24 08/20/24 History
potassium chloride 10 mEq 10 meq PO DAILY Supplement 08/20/24 08/20/24 History
tablet,extended
release(part/cryst) (Klor-Con M)
pramipexole 0.5 mg tablet 0.5 mg PO HS RESTLESS LEG 08/20/24 08/20/24 History
spironolactone 25 1 tab PO DAILY Fluid 08/20/24 08/20/24 History
mg-hydrochlorothiazide 25 mg tablet Retention/Swelling
verapamil 240 mg tablet,extended 240 mg PO DAILY Heart 08/20/24 08/20/24 History
release Disease/Condition
Review of Systems
-
History Source: Patient
General: Reports Weight Gain and Fatigue
HEENT: Reports No Symptoms
Respiratory: Reports SOB and HARVEY
Cardiac: Reports Edema
Abdomen/GI: Reports Reflux
: Reports No Symptoms
Musculoskeletal: Reports Joint Pain and Edema
Skin: Reports No Symptoms
Neurological: Reports No Symptoms
Vascular: Reports No Symptoms
Physical Exam
Vital Signs
Temp 97.9 F 08/21/24 14:15
Temp route: Oral 08/21/24 14:15
Pulse 69 08/21/24 14:15
Rhythm: Normal sinus rhythm 08/21/24 08:00
With- Prolonged QT interval 08/21/24 08:00
Resp Rate 20 08/21/24 14:15
Blood pressure 148/72 08/21/24 14:15
Blood pressure extremity used: Right forearm 08/21/24 14:15
Position: Lying 08/21/24 14:15
MAP (cuff-Jovanni Monitor) 80 08/20/24 23:00
SaO2 97 08/21/24 14:15
Nasal Cannula flow liters per minute 2 08/21/24 07:56
Oxygen Mode of Delivery Room air 08/21/24 14:15
Pulse Ox at Rest 95 08/21/24 10:15
Can the patient verbally communicate their pain? Yes 08/21/24 14:20
Pain scale ratin 08/21/24 14:20
Actual Weight 263 lb 08/21/24 00:17
Body Mass Index (BMI) 46.6 08/21/24 00:17
Supine- Pulse 75 08/21/24 10:15
Heart rate after activity 79 08/21/24 10:15
Blood pressure after activity 139/74 08/21/24 10:15
Oxygen Saturation with Activity 95 08/21/24 10:15
Labs
08/21/24 07:29
08/21/24 13:30
Hemoglobin A1c 5.9 % (4.0-5.6) H 08/21/24 07:29
Troponin I < 0.012 ng/ml 08/20/24 20:39
Gaq-V-Xuokdysnblj Pept 367 pg/ml 08/20/24 20:39
Urinalysis
Urine Color Yellow 08/20/24 22:52
Urine Clarity Clear (Clear) 08/20/24 22:52
Urine pH 6.0 (5.0-9.0) 08/20/24 22:52
Ur Specific [place]berg 1.015 (<1.030) 08/20/24 22:52
Urine Ketones Negative (Negative) 08/20/24 22:52
Ur Occult Blood Reflex Negative (Negative) 08/20/24 22:52
Urine Bilirubin Negative (Negative) 08/20/24 22:52
Leukocyte Esterase Rfl 1+ (Negative) A 08/20/24 22:52
Urine RBC 0-2 /HPF (0-2) 08/20/24 22:52
Urine WBC (Reflex) 11-15 /HPF (0-5) A 08/20/24 22:52
Urine Bacteria (Reflex) Many (Negative) A 08/20/24 22:52
Urine Glucose Negative (Negative) 08/20/24 22:52
Urine Albumin (Reflex) Negative (Neg - Trace) 08/20/24 22:52
Exam
General: Well Developed, Well Nourished, No Apparent Distress, Comfortable and Other (Morbidly obese)
HEENT: Normocephalic, Anicteric and Atraumatic
Neck: Trachea Midline
Respiratory: Clear and Crackles (Crackles at bases)
Cardiac: Regular Rhythm and Murmur
GI: Soft, Non Tender, Non Distended and Normal Bowel Sounds
Rectal: Deferred by Provider
Skin: Warm and Dry
Neuro: Awake, Alert, Oriented and AO x 3
Extremities: Lower Level Edema (Bilateral lower extremity edema 1-2+ pitting edema bilaterally) and Pulses (Feet warm dry, dorsalis pedis pulses 1-2+ bilaterally)
Lymph: No Lymphadenopathy
Psych: Calm
Assessment / Plan
-
Assessment:
Mitral valve endocarditis-continue IV antibiotics until blood sterilized.
Hypertension
Pulmonary fibrosis-PFTs ordered
Restless leg syndrome
Obstructive sleep apnea
GERD
Morbid obesity
Degenerative joint disease/osteoarthritis
Plan:
Continue IV antibiotics, repeat blood cultures
Preoperative studies ordered
Panorex ordered, dental evaluation
All studies to be reviewed by attending cardiothoracic surgeons and will discuss surgical plan and timing with patient later this week.
Data Reviewed
-
EKG: Report Reviewed by me
Echo: Report Reviewed by me
Radiology: Report Reviewed by me
Labs: Labs Reviewed by me
Total Time Spent with Patient (in minutes): 40min.
--- NOTE | 2024-08-21 15:25 | PHA.VAN.IN ---
Assessment
- Assessment
Renal Function: Appears similar to baseline
Concomitant Antimicrobials: ceftriaxone
AUC Dosing Plan
- Dosing Variables
Dosing Weight (kg): 119
Dosing CrCl (ml/min): 74
Vd coefficient (L/kg): 0.5
- Empiric Dosing
Initial / Loading Dose: Vanc 2000mg - 08/20 21:41 - give additional 2000mg now
Maintenance Regimen: Vanc 1000mg Q12H starting at 08/22 0600
Estimated AUC (mcg*h/mL): 528
Estimated Peak (mcg*h/mL): 30.8
Estimated Trough (mcg/ml): 14.9
Estimated Half Life (H): 10.5
Has been approximately 18H since original loading dose
Given age and weight, expect level would be undetectable or close to at this point, will re-load patient today
- Monitoring
No levels ordered at this time: consider levels in next few days
Pharmacokinetics Vancomycin I
- -
Patient Age: 79
Patient Sex: Female
Vancomycin Day #: 1
Indication: Bacteremia
Requesting Provider: Dr. Saucedo
Pertinent Antimicrobial Allergies:
no pertinent antibiotic allergies
Height / Weight:
Height 5 ft 3 in
Actual Weight 119.295 kg
Pertinent Past Medical History: BMI ~47, DM II
- Vital Signs / Lab Results
Temp Pulse Resp BP Pulse Ox
97.9 F 69 20 148/72 97
08/21/24 14:15 08/21/24 14:15 08/21/24 14:15 08/21/24 14:15 08/21/24 14:15
Lab Results - Hematology
08/20/24 08/21/24
16:26 07:29
WBC 13.4 H 11.3 H
Lab Results - Chemistry
08/20/24 08/21/24 08/21/24
16:26 07:23 13:30
BUN 22 H Cancelled 18 H
Creatinine 1.0 Cancelled 0.8
Estimated Creat Clear Cancelled 74
Albumin 4.2
08/20/24
20:39
Lactic Acid 1.1
Lab Results - Urine
08/20/24
22:52
Urine Nitrite (Reflex) Negative
Leukocyte Esterase Rfl 1+ A
Urine WBC (Reflex) 11-15 A
Urine Bacteria (Reflex) Many A
[2024-08-21] MEDS: VANCOCIN 540 MG IV (16:20)
--- NOTE | 2024-08-21 16:26 | CM ---
Alert awake oriented patient who lives with his dgt Monique in an apartment with 0 steps to enter . He is independent in all activities of daily living.Dgt drives him as needed. He uses [employer] unsure of DME .Advanced Directive pkg given.
No VN hx /A [facility] hx
Pharmacy [facility]
PCP DR Hernández
PLAN Home no anticipated needs
[2024-08-21 17:13] LABS: Glucose - Point of Care 146 mg/dl (70-99)
[2024-08-21] MEDS: LOVENOX 40 MG SC (17:45)
[2024-08-21] MEDS: STERILE WATER FOR INJECTION 20 ML IV (17:46)
[2024-08-21] MEDS: ROCEPHIN 2000 MG IV (17:46)
[2024-08-21 21:21] LABS: Glucose - Point of Care 134 mg/dl (70-99)
[2024-08-22 03:28] VITALS: BP 128/66
[2024-08-22] MEDS: TYLENOL 650 MG PO ×3 (04:34→19:55)
[2024-08-22] MEDS: VANCOCIN 200 IV ×2 (05:42→18:35)
[2024-08-22 06:00] VITALS: BMI 46.4
[2024-08-22 07:19] LABS: Glucose - Point of Care 120 mg/dl (70-99)
[2024-08-22] MEDS: NOVOLOG FLEXPEN-LOW RESISTANCE SC (08:08)
[2024-08-22] MEDS: KCL 10 MEQ PO (08:10)
[2024-08-22] MEDS: CLARITIN 10 MG PO (08:11)
[2024-08-22] MEDS: CALAN EXTENDED RELEASE 240 MG PO (08:13)
[2024-08-22] MEDS: CYMBALTA DELAYED RELEASE 20 MG PO (08:13)
[2024-08-22] MEDS: ALDACTONE 25 MG PO (08:15)
[2024-08-22] MEDS: PROTONIX 40 MG PO ×2 (08:15→19:48)
[2024-08-22] MEDS: LIDOCAINE 4% PATCH 1 PATCH TOPICAL (08:17)
--- NOTE | 2024-08-22 08:52 | W.PN.HOSP.TC ---
Today's Communication/Plan
-
.
Assessment / Plan
Assessment / Plan
Impression/plan
#Mitral valve endocarditis, acute
-single BCx done in PCP's office. Positive for gram positive cocci in clusters.
-MERARY today 08/21 revealed a small, highly mobile vegetation on the ventricular surface of the posterior mitral valve leaflet apparatus. No evidence of perivalvular extension or significant valve dysfunction.
-Follow blood cultures daily, BC preliminary negative
-Infectious disease input appreciated, Abx changed from Cefazolin to Ceftriaxone + Vancomycin. Continue Abx per ID recommendation
-Cardiology consulted, input appreciated
-CT surgery consulted, pending eval.
#Diabetes Mellitus, Type II
-HgbA1c 5.9
-Monitor sugars and continue coverage insulin
#Essential Hypertension
-Continue home Spironolactone and Verapamil
#Restless Leg Syndrome
-Continue pramipexole
#GERD
-Continue Lansoprazole
#Obstructive Sleep Apnea
-Continue CPAP
DVT Proph: Lovenox
Code Status: Full Code
Anticipated Discharge: > 48 hours
Subjective/Interval History
-
Date of Service: August 22, 2024
Objective Data
-
Labs:
Laboratory Results
08/22/24
08:40
WBC Pending
Hgb Pending
Hct Pending
Plt Count Pending
Sodium Pending
Potassium Pending
Chloride Pending
Carbon Dioxide Pending
BUN Pending
Creatinine Pending
Glucose Pending
Calcium Pending
Vital Signs:
Vital Signs
Temp Pulse Resp BP Pulse Ox
98.7 F 72 18 123/74 96
08/22/24 07:50 08/22/24 08:15 08/22/24 07:50 08/22/24 08:15 08/22/24 07:50
I&O
08/21/24 08/22/24 08/23/24
06:59 06:59 06:59
Intake Total 240 / 240
Output Total 350 / 350
Balance -350 / -350 240 / 240
Review of Systems
-
All other systems: Reviewed and negative (except as documented)
Physical Exam
-
General: Well Developed and No Apparent Distress
Respiratory: Clear to Auscultation
Cardiac: Regular Rhythm and S1/S2
GI: Soft, Nontender, Nondistended and Normal Bowel Sounds
[2024-08-22 09:26] LABS: % Basophils 0.7 % (0-2); % Eosinophils 2.4 % (0-6); % Immature Granulocytes 0.8 % (0-0.5); % Lymphocytes 15.7 % (20.5-51.1); % Monocytes 6.2 % (1.7-9.3); % Neutrophils 74.2 % (42.2-75.2); Absolute Basophils 0.1 10^3/uL (0-0.2); Absolute Eosinophils 0.3 10^3/uL (0-0.7); Absolute Immature Granulocytes 0.1 10^3/uL (0-0.05); Absolute Lymphocytes 1.9 10^3/uL (1.2-3.4); Absolute Monocytes 0.8 10^3/uL (0.1-0.6); Hematocrit 30.9 % (37.0-47.0); Hemoglobin 10.3 g/dL (12.0-16.0); Mean Corp Hgb Conc. 33.3 g/dL (33.0-37.0); Mean Corpuscular Hgb 28.8 pg (27.0-31.0); Mean Corpuscular Volume 86.3 fL (81.0-99.0); Mean Platelet Volume 9.4 fL (7.4-10.4); Nucleated Red Blood Cells % 0 %; Platelet Count 329 10^3/uL (130-400); Red Blood Cell Count 3.58 10^6/uL (4.20-5.40); Red Cell Dist. Width 15.4 % (11.5-14.5); White Blood Cell Count 12.1 10^3/uL (4.8-10.8)
[2024-08-22 10:48] LABS: Erythrocyte Sed Rate 80 mm/hour (0-20)
[2024-08-22] MEDS: VENTOLIN NEBULES 2.5 MG INH (11:39)
[2024-08-22 11:49] LABS: Glucose - Point of Care 161 mg/dl (70-99)
[2024-08-22 11:54] VITALS: BP 114/69
[2024-08-22 11:56] LABS: Blood Urea Nitrogen 19 mg/dl (7-17); Calcium 9.3 mg/dl (8.4-10.2); Carbon Dioxide 21 mmol/L (22-30); Chloride 103 mmol/L (98-107); Estimated Creatinine Clearance 73 ml/min; Glucose 103 mg/dl (70-99); Potassium 3.8 mmol/L (3.5-5.1); Sodium 139 mmol/L (135-145); eGFR > 60.00
--- NOTE | 2024-08-22 12:03 | W.PN.CD ---
Today's Communication / Plan
-
Continue antibiotics
Follow-up CT surgery recommendations
Impression / Plan
-
79 y/o female past medical history of hypertension and obstructive sleep apnea here with mitral valve endocarditis.
Mitral valve endocarditis, acute
-Outpatient blood cultures grew Staph epidermidis from 1 bottle. Blood cultures here are negative.
-MERARY on 08/21 showed a mobile mitral valve vegetation with mild regurgitation. No clinical signs of heart failure.
-Continue antibiotics per ID
-Continue to follow blood cultures
-CT surgery to weigh in. Patient has undergone appropriate preoperative testing, though we can hopefully get away with parenteral antibiotics given that she does not have any acute indication for surgery
Hypertension
-Okay to continue home Spironolactone and Verapamil for now given that she has been normotensive
BRANDI
- Continue CPAP
Subjective: Patient reports that she feels well. No subjective fevers. Shortness of breath is stable. Is fatigued from testing this morning.
Physical Exam
Vital Signs/Labs
Vital Signs
Temp Pulse Resp BP Pulse Ox
97.7 F 78 20 114/69 95
08/22/24 11:54 08/22/24 11:54 08/22/24 11:54 08/22/24 11:54 08/22/24 11:54
08/21/24 08/22/24 08/23/24
06:59 06:59 06:59
Actual Weight 119.295 kg 118.87 kg
08/22/24 08:40
08/22/24 08:40
08/20/24
20:39
Wsx-G-Clfekotkrco Pept 367
LAB Results
08/20/24
20:39
Troponin I < 0.012
Physical Exam
Constitutional: No acute distress and Comfortable
Cardiovascular: Rhythm & rate is regular and Pedal edema present (Nonpitting with venous stasis changes)
Respiratory: Respiratory effort normal and Lungs clear to auscul.
GI: Soft
Data Reviewed
-
MERARY:
-LVEF 55-60%. No regional wall motion abnormalities.
-Normal right ventricular size and function.
-Moderate posterior mitral annular calcification/thickening and calcification
of the subvalvular apparatus.
-Mobile echodensity measuring approximately 1.3 x 0.5 cm on the ventricular
side of the posterior leaflet (likely P1/P2).
-Mild mitral regurgitation.
No prior study available for comparison.
Date of Service: August 22, 2024
Medical Decision Making: Reviewed Test Results
Echo: Tracing Personally Visualized and interpreted
X-Ray/CT/US/MRI/NUC/PET: Image Personally Visualized and interpreted
Medical Tests (PFT, Pathology etc): Report Reviewed by me
Labs: Labs Reviewed by me
[2024-08-22 12:22] LABS: Glucose - Point of Care 155 mg/dl (70-99)
[2024-08-22] MEDS: NOVOLOG FLEXPEN-LOW RESISTANCE 1 UNITS SC ×2 (12:51→16:39)
--- NOTE | 2024-08-22 13:11 | PHA.VAN.FU ---
Vancomycin Assessment / Plan
- Assessment
Renal Function: Stable
WBC's are: Stable
Concomitant Antimicrobials: ceftriaxone
- Dosing Plan
Continue: Vanc 1000mg Q12H
- Monitoring Plan
No level(s) ordered at this time: consider levels in next few days
- Follow Up
Pharmacy will continue to follow.
Vancomycin Follow UP
- -
Patient Age: 79
Patient Sex: Female
Vancomycin Day #: 2
Indication: Bacteremia
Requesting Provider: Dr. Saucedo
Pertinent Antimicrobial Allergies:
no pertinent antibiotic allergies
Height / Weight:
Height 5 ft 3 in
Actual Weight 118.87 kg
Pertinent Past Medical History: BMI ~47, DM II
- Vital Signs / Lab Results
Temp Pulse Resp BP Pulse Ox
97.7 F 78 20 114/69 95
08/22/24 11:54 08/22/24 11:54 08/22/24 11:54 08/22/24 11:54 08/22/24 11:54
Lab Results - Hematology
08/20/24 08/21/24 08/22/24
16:26 07:29 08:40
WBC 13.4 H 11.3 H 12.1 H
Lab Results - Chemistry
08/20/24 08/21/24 08/21/24
16:26 07:23 13:30
BUN 22 H Cancelled 18 H
Creatinine 1.0 Cancelled 0.8
Estimated Creat Clear Cancelled 74
Albumin 4.2
08/22/24
08:40
BUN 19 H
Creatinine 0.8
Estimated Creat Clear 73
Albumin
08/20/24
20:39
Lactic Acid 1.1
Lab Results - Urine
08/20/24
22:52
Urine Nitrite (Reflex) Negative
Leukocyte Esterase Rfl 1+ A
Microbiology Results
08/20/24 22:52 Urine Culture - Preliminary
Urine Gram negative bacilli
08/20/24 21:13 Blood Culture - Preliminary
Blood/Venous No Growth in 24 hours- Final report to follow
08/20/24 21:13 Blood Culture - Preliminary
Blood/Venous No Growth in 24 hours- Final report to follow
08/20/24 20:39 Blood Culture - Preliminary
Blood/Venous No Growth in 24 hours- Final report to follow
[2024-08-22] MEDS: DIFLUCAN 200 MG PO (13:20)
[2024-08-22 15:40] VITALS: BP 136/77
[2024-08-22 16:30] LABS: Glucose - Point of Care 166 mg/dl (70-99)
[2024-08-22] MEDS: STERILE WATER FOR INJECTION 20 ML IV (16:36)
[2024-08-22] MEDS: ROCEPHIN 2000 MG IV (16:36)
--- NOTE | 2024-08-22 17:08 | W.PN.ID1 ---
Date of Service
Date of Service: August 22, 2024
Today's Communication
Continue antibiotics.
Assessment / Plan
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
Outpatient blood culture positive for Staphylococcus epidermidis (single set)
Leukocytosis
Elevated ESR
Elevated CRP
Chronic SOB
HTN
GERD
Pulmonary fibrosis
BRANDI
DM type II
restless leg syndrome
Recommendations:
Continue with empiric antibiotic therapy (ceftriaxone; vancomycin)
Awaiting further culture data to guide antimicrobial selection and potential de-escalation.
Awaiting outpatient culture results.
Following blood culture results obtained here (obtained prior to initiation of antibiotic therapy)
Follow Vanco levels closely.
����������������������������������������������������������
Chief Complaint
-: Bacteremia
Subjective / Review of Systems
Review of Systems: No Fever and No Chills
Vital Signs / Physical Exam
Vital Signs
Vital Signs
Temp Pulse Resp BP Pulse Ox
98 F 74 16 136/77 98
08/22/24 15:40 08/22/24 15:40 08/22/24 15:40 08/22/24 15:40 08/22/24 15:40
Physical Exam
Constitutional: No Acute Distress, Comfortable, Chronically Ill and Non-toxic
Eyes: No Conjunctival Hemorrhage and Sclera Anicteric
Cardiovascular: S1/S2; Negative S3/S4 or Murmur
Pulmonary: Non Labored
Gastrointestinal: Soft and Non Tender
Neurological: Awake and Alert
Psychological: Calm
Objective Data
Lab Data
Lab Results
08/22/24 08:40
08/22/24 08:40
ESR 80 mm/hour (0-20) H 08/22/24 08:40
Estimated Creat Clear 73 ml/min 08/22/24 08:40
Lactic Acid 1.1 mmol/L (0.7-2.0) 09/30/24 20:39
Total Bilirubin 0.7 mg/dl (0.2-1.3) 08/20/24 16:26
AST 39 U/L (14-36) H 08/20/24 16:26
ALT 15 U/L (0-35) 08/20/24 16:26
Alkaline Phosphatase 112 U/L (38-126) 08/20/24 16:26
C-Reactive Protein 56.00 mg/L (0.0-10.00) H 08/22/24 08:40
Most recent labs reviewed.
Micro Results:
08/20/24 22:52 Urine Culture - Preliminary
Urine Gram negative bacilli
08/20/24 21:13 Blood Culture - Preliminary
Blood/Venous No Growth in 24 hours- Final report to follow
08/20/24 21:13 Blood Culture - Preliminary
Blood/Venous No Growth in 24 hours- Final report to follow
08/20/24 20:39 Blood Culture - Preliminary
Blood/Venous No Growth in 24 hours- Final report to follow
Imaging:
08/21/2024 ECHO (MERARY): A small, highly mobile vegetation on the ventricular surface of the posterior mitral valve leaflet is noted. No evidence of perivalvular extension or significant valve dysfunction noted. Please see full dictation for
additional detail.
08/16/2024 ECHO (TTE): LVEF approximately 63%. Right ventricle not well-visualized. Left atrium moderately dilated. There is mild mitral valve leaflet thickening with moderate posterior mitral annular calcification. There is mild mitral
regurgitation and the noted is a mobile echodensity measuring 0.8 x 0.8 cm which appears to be attached to the ventricular surface of the calcified posterior mitral annulus, which could be an extension of complex caseous mitral annular
calcification, or vegetation. Please see full dictation for additional detail. (Film performed at [place] @ [place])
[2024-08-22] MEDS: LOVENOX 40 MG SC (18:35)
[2024-08-22 19:32] VITALS: BP 159/75
[2024-08-22] MEDS: SINGULAIR 10 MG PO (19:48)
[2024-08-22] MEDS: MIRAPEX, GENERIC 0.5 MG PO (19:48)
[2024-08-22] MEDS: MONISTAT 7 VAGINAL CREAM 1 APPLIC VAG (19:48)
[2024-08-22 21:10] LABS: Glucose - Point of Care 127 mg/dl (70-99)
[2024-08-22 23:10] VITALS: BP 134/69
[2024-08-23 03:21] VITALS: BP 116/61
[2024-08-23 06:00] VITALS: BMI 46.6
[2024-08-23] MEDS: VANCOCIN 200 IV (06:22)
[2024-08-23] MEDS: TYLENOL 650 MG PO ×2 (06:28→13:30)
[2024-08-23 07:21] VITALS: BP 129/70
[2024-08-23 07:51] LABS: Glucose - Point of Care 124 mg/dl (70-99)
[2024-08-23 08:37] LABS: Hematocrit 28.6 % (37.0-47.0); Hemoglobin 9.1 g/dL (12.0-16.0); Mean Corp Hgb Conc. 31.8 g/dL (33.0-37.0); Mean Corpuscular Hgb 27.5 pg (27.0-31.0); Mean Corpuscular Volume 86.4 fL (81.0-99.0); Mean Platelet Volume 9.4 fL (7.4-10.4); Platelet Count 306 10^3/uL (130-400); Red Blood Cell Count 3.31 10^6/uL (4.20-5.40); Red Cell Dist. Width 15.6 % (11.5-14.5); White Blood Cell Count 10.2 10^3/uL (4.8-10.8)
--- NOTE | 2024-08-23 08:38 | W.PN.CD ---
Today's Communication / Plan
-
-CT Surgery evaluated; recommend continuing antibiotics and repeating MERARY in a few weeks.
-Will arrange outpatient MERARY in 4 weeks.
-Outpatient follow-up with Cardiology.
Impression / Plan
-
79 y/o female past medical history of hypertension and obstructive sleep apnea here with mitral valve endocarditis.
Mitral valve endocarditis, acute
-Outpatient blood cultures grew Staph epidermidis from 1 bottle; blood cultures here are negative.
-MERARY on 08/21 showed a mobile mitral valve vegetation with mild regurgitation; no clinical signs of heart failure.
-Continue antibiotics per ID
-Continue to follow blood cultures
-CT Surgery evaluated; recommend continuing antibiotics and repeating MERARY in a few weeks.
-Will arrange outpatient MERARY in 4 weeks.
-Outpatient follow-up with Cardiology.
Hypertension
-Blood pressure fairly controlled; continue current medication regimen.
BRANDI
- Continue CPAP
Subjective: No major events overnight. No cardiac complaints this a.m.
Physical Exam
Vital Signs/Labs
Vital Signs
Temp Pulse Resp BP Pulse Ox
97.3 F 70 20 129/70 96
08/23/24 07:21 08/23/24 07:21 08/23/24 07:21 08/23/24 07:21 08/23/24 07:21
08/22/24 08/23/24 08/24/24
06:59 06:59 06:59
Actual Weight 118.87 kg 119.38 kg
08/23/24 07:14
08/20/24
20:39
Wke-U-Rrkvdgrkjsc Pept 367
LAB Results
08/20/24
20:39
Troponin I < 0.012
Physical Exam
Constitutional: No acute distress and Comfortable
EENT: Anicteric
Cardiovascular: Rhythm & rate is regular, Systolic murmur absent, Pedal edema present (Trace) and S1S2 is normal
Respiratory: Respiratory effort normal and Lungs clear to auscul.
GI: Soft
Neuro/Psych: AO x 3
Other: Skin (Warm, dry)
Data Reviewed
-
Date of Service: August 23, 2024
EKG: Tracing Personally Visualized and interpreted (Telemetry: Sinus rhythm)
Labs: Labs Reviewed by me
[2024-08-23] MEDS: LIDOCAINE 4% PATCH 1 PATCH TOPICAL (09:06)
[2024-08-23] MEDS: ALDACTONE 25 MG PO (09:07)
[2024-08-23] MEDS: CALAN EXTENDED RELEASE 240 MG PO (09:07)
[2024-08-23] MEDS: PROTONIX 40 MG PO ×2 (09:07→21:10)
[2024-08-23] MEDS: CYMBALTA DELAYED RELEASE 20 MG PO (09:08)
[2024-08-23] MEDS: CLARITIN 10 MG PO (09:08)
[2024-08-23] MEDS: NOVOLOG FLEXPEN-LOW RESISTANCE SC (09:08)
[2024-08-23 09:24] LABS: Blood Urea Nitrogen 18 mg/dl (7-17); Carbon Dioxide 24 mmol/L (22-30); Chloride 103 mmol/L (98-107); Estimated Creatinine Clearance 65 ml/min; Glucose 113 mg/dl (70-99); Potassium 3.8 mmol/L (3.5-5.1); Sodium 138 mmol/L (135-145); eGFR > 60.00
[2024-08-23] MEDS: KCL 10 MEQ PO (10:16)
--- NOTE | 2024-08-23 10:41 | W.PN.HOSP.TC ---
Addendum entered and electronically signed by Hugo Saini DO 08/23/24 13:36:
CDI clarification: Asymptomatic bacteriuria
Original Note:
Today's Communication/Plan
-
continuing antibiotics and repeating MERARY in a few weeks.
outpatient MERARY in 4 weeks.
Assessment / Plan
Assessment / Plan
Impression/plan
#Mitral valve endocarditis, acute
-single BCx done in PCP's office. Positive for gram positive cocci in clusters.
-MERARY today 08/21 revealed a small, highly mobile vegetation on the ventricular surface of the posterior mitral valve leaflet apparatus. No evidence of perivalvular extension or significant valve dysfunction.
-Follow blood cultures daily, BC preliminary negative
-CT Surgery input appreciated. recommend continuing antibiotics and repeating MERARY in a few weeks.
-Infectious disease input appreciated . Continue with empiric antibiotic therapy (ceftriaxone; vancomycin)
-Awaiting further culture data to guide antimicrobial selection outpatient.
-Cardiology input appreciated. Outpatient MERARY in 4 weeks.
#Diabetes Mellitus, Type II
-HgbA1c 5.9
-Monitor sugars and continue coverage insulin
#Essential Hypertension
-Continue home Spironolactone and Verapamil
#Restless Leg Syndrome
-Continue pramipexole
#GERD
-Continue Lansoprazole
#Obstructive Sleep Apnea
-Continue CPAP
DVT Proph: Lovenox
Code Status: Full Code
Anticipated Discharge: 24 - 48 hours
Subjective/Interval History
-
Patient seen and examined at bedside. Afebrile with vital sign stable. Reports fluconazole tablet helped improve vaginal candidiasis. No overnight events. Eager to go home.
Objective Data
-
Labs:
Laboratory Results
08/23/24
07:14
WBC 10.2
Hgb 9.1 L
Hct 28.6 L
Plt Count 306
Sodium 138
Potassium 3.8
Chloride 103
Carbon Dioxide 24
BUN 18 H
Creatinine 0.9
Glucose 113 H
Calcium 9.0
Vital Signs:
Vital Signs
Temp Pulse Resp BP Pulse Ox
97.3 F 70 20 129/70 96
08/23/24 07:21 08/23/24 09:07 08/23/24 07:21 08/23/24 09:07 08/23/24 07:21
I&O
08/22/24 08/23/24 08/24/24
06:59 06:59 06:59
Intake Total 240 / 240 960 / 960
Balance 240 / 240 960 / 960
Review of Systems
-
All other systems: Reviewed and negative (except as documented.)
Physical Exam
-
General: No Apparent Distress
Respiratory: Clear to Auscultation
Cardiac: Regular Rhythm and S1/S2
GI: Soft, Nontender, Nondistended and Normal Bowel Sounds
[2024-08-23 11:57] VITALS: BP 115/71
[2024-08-23 12:02] LABS: Glucose - Point of Care 229 mg/dl (70-99)
[2024-08-23] MEDS: NOVOLOG FLEXPEN-LOW RESISTANCE 2 UNITS SC (12:09)
--- NOTE | 2024-08-23 12:36 | PN.CDI ---
CDI
- -
CDI:
Physician Documentation Request
Admit Date: 08/20/24 22:34
Dear Doctor Jamie,
Patient admitted with acute mitral valve endocarditis.
Urine culture positive for klebsiella pneumoniae.
UA results:
Laboratory Tests
08/20/24
22:52
Urine Color Yellow
Urine Clarity Clear
Ur Occult Blood Reflex Negative
Urine Nitrite (Reflex) Negative
Leukocyte Esterase Rfl 1+ A
Urine WBC (Reflex) 11-15 A
Urine Bacteria (Reflex) Many A
Could you please provide a diagnosis that supports the above lab abnormalities and additional evaluation/ monitoring:
UTI
Asymptomatic bacteruria
Other
Use of terms such as suspected, likely, concern for, or probable (associated with a specific diagnosis that is being evaluated, monitored, or treated as if it exists) are acceptable and can be coded in the inpatient setting, when documented at the
time of discharge.
Thank you,
Lisa Woodson RN, BSN
CDI Specialist
tiger text
Please use your independent medical judgment in providing your response.
--- NOTE | 2024-08-23 13:32 | PHA.VAN.FU ---
Vancomycin Assessment / Plan
- Assessment
Renal Function: Stable
WBC's are: WNL
In the past 24 hrs, patient has been: Afebrile
Concomitant Antimicrobials: ceftriaxone
- Dosing Plan
Continue: Vanc 1000mg Q12H
- Monitoring Plan
Peak Level: 08/23 20:30
Trough Level: 08/24 05:30
Monitoring Comments: levels to be drawn after 4th maintenance dose
Given weight - patient may be slower to reach equilibrium and may not fully be at steady state
- Follow Up
Pharmacy will continue to follow.
Vancomycin Follow UP
- -
Patient Age: 79
Patient Sex: Female
Vancomycin Day #: 3
Indication: Bacteremia
Requesting Provider: Dr. Saucedo
Pertinent Antimicrobial Allergies:
no pertinent antibiotic allergies
Height / Weight:
Height 5 ft 3 in
Actual Weight 119.38 kg
Pertinent Past Medical History: BMI ~47, DM II
- Vital Signs / Lab Results
Temp Pulse Resp BP Pulse Ox
98.2 F 76 22 115/71 94
08/23/24 11:57 08/23/24 11:57 08/23/24 11:57 08/23/24 11:57 08/23/24 11:57
Lab Results - Hematology
08/20/24 08/21/24 08/22/24
16:26 07:29 08:40
WBC 13.4 H 11.3 H 12.1 H
08/23/24
07:14
WBC 10.2
Lab Results - Chemistry
08/20/24 08/21/24 08/21/24
16:26 07:23 13:30
BUN 22 H Cancelled 18 H
Creatinine 1.0 Cancelled 0.8
Estimated Creat Clear Cancelled 74
Albumin 4.2
08/22/24 08/23/24
08:40 07:14
BUN 19 H 18 H
Creatinine 0.8 0.9
Estimated Creat Clear 73 65
Albumin
08/20/24
20:39
Lactic Acid 1.1
Microbiology Results
08/20/24 22:52 Urine Culture - Final
Urine Klebsiella pneumoniae
08/20/24 21:13 Blood Culture - Preliminary
Blood/Venous No Growth in 48 hours- Final report to follow
08/20/24 21:13 Blood Culture - Preliminary
Blood/Venous No Growth in 48 hours- Final report to follow
08/20/24 20:39 Blood Culture - Preliminary
Blood/Venous No Growth in 48 hours- Final report to follow
--- NOTE | 2024-08-23 13:47 | W.PN.ID1 ---
Date of Service
Date of Service: August 23, 2024
Today's Communication
Continue antibiotics. See below�
Assessment / Plan
[place] mitral valve endocarditis
- Outpatient blood culture positive for Staphylococcus epidermidis (2 sets)
- Cultures here negative
Leukocytosis
Elevated ESR
Elevated CRP
Chronic SOB
HTN
GERD
Pulmonary fibrosis
BRANDI
DM type II
restless leg syndrome
Recommendations:
White count improved.
Outpatient cultures from [facility] reviewed. Coag negative staph is methicillin susceptible.
Discontinue further ceftriaxone and vancomycin.
Transition to cefazolin 2 g IV every 8 hours.
Will need 6-week course of therapy.
Cardiology notes reviewed; patient for possible repeat cardiac imaging in approximately 4 weeks.
Blood cultures remain negative can place PICC line.
����������������������������������������������������������
Chief Complaint
-: Bacteremia
Vital Signs / Physical Exam
Vital Signs
Vital Signs
Temp Pulse Resp BP Pulse Ox
98.2 F 76 22 115/71 94
08/23/24 11:57 08/23/24 11:57 08/23/24 11:57 08/23/24 11:57 08/23/24 11:57
Objective Data
Lab Data
Lab Results
08/23/24 07:14
08/23/24 07:14
ESR 80 mm/hour (0-20) H 08/22/24 08:40
Estimated Creat Clear 65 ml/min 08/23/24 07:14
Lactic Acid 1.1 mmol/L (0.7-2.0) 08/20/24 20:39
Total Bilirubin 0.7 mg/dl (0.2-1.3) 08/20/24 16:26
AST 39 U/L (14-36) H 08/20/24 16:26
ALT 15 U/L (0-35) 08/20/24 16:26
Alkaline Phosphatase 112 U/L (38-126) 08/20/24 16:26
C-Reactive Protein 56.00 mg/L (0.0-10.00) H 08/22/24 08:40
Most recent labs reviewed.
Micro Results:
08/20/24 22:52 Urine Culture - Final
Urine Klebsiella pneumoniae
08/20/24 21:13 Blood Culture - Preliminary
Blood/Venous No Growth in 48 hours- Final report to follow
08/20/24 21:13 Blood Culture - Preliminary
Blood/Venous No Growth in 48 hours- Final report to follow
08/20/24 20:39 Blood Culture - Preliminary
Blood/Venous No Growth in 48 hours- Final report to follow
08/18/24
11:47 Blood Culture
Anaerobic culture : Staph. epi
Aerobic culture : NG @ 5d
08/18/24
11:55 Blood Culture
Anaerobic culture : Staph. epi
Aerobic culture : NG @ 5d
Staphylococcus epidermidis
Clindamycin S <=0.25
Erythromycin S <=0.25
Gentamicin S <=0.5
Oxacillin S <=0.25
Tetracycline S <=1
Trimethoprim/sulfa S <=10
Vancomycin S =1
(Cultures performed at [facility])
Imaging:
08/21/2024 ECHO (MERARY): A small, highly mobile vegetation on the ventricular surface of the posterior mitral valve leaflet is noted. No evidence of perivalvular extension or significant valve dysfunction noted. Please see full dictation for
additional detail.
08/16/2024 ECHO (TTE): LVEF approximately 63%. Right ventricle not well-visualized. Left atrium moderately dilated. There is mild mitral valve leaflet thickening with moderate posterior mitral annular calcification. There is mild mitral
regurgitation and the noted is a mobile echodensity measuring 0.8 x 0.8 cm which appears to be attached to the ventricular surface of the calcified posterior mitral annulus, which could be an extension of complex caseous mitral annular
calcification, or vegetation. Please see full dictation for additional detail. (Film performed at [place] @ [place])
[2024-08-23 15:36] VITALS: BP 144/66
[2024-08-23 16:45] LABS: Glucose - Point of Care 157 mg/dl (70-99)
[2024-08-23] MEDS: ANCEF 10 IV (16:50)
[2024-08-23] MEDS: LOVENOX 40 MG SC (16:50)
[2024-08-23] MEDS: NOVOLOG FLEXPEN-LOW RESISTANCE 1 UNITS SC (16:51)
--- NOTE | 2024-08-23 16:56 | CM ---
Continue IV antibiotics.
Cardiology involved malaika have out pt follow up .
Offered Vn she declined need.
Family will drive her home.
PLAN Home no needs
[2024-08-23] MEDS: MIRAPEX, GENERIC 0.5 MG PO (21:10)
[2024-08-23] MEDS: SINGULAIR 10 MG PO (21:10)
[2024-08-23] MEDS: MONISTAT 7 VAGINAL CREAM VAG (21:13)
[2024-08-23 21:16] LABS: Glucose - Point of Care 148 mg/dl (70-99)
[2024-08-23 23:18] VITALS: BP 137/71
[2024-08-24] MEDS: ANCEF 10 IV ×3 (00:38→16:54)
[2024-08-24] MEDS: TYLENOL 650 MG PO ×3 (05:45→22:30)
[2024-08-24 06:00] VITALS: BMI 47.0
[2024-08-24 06:25] LABS: Hematocrit 27.5 % (37.0-47.0); Mean Corp Hgb Conc. 32.7 g/dL (33.0-37.0); Mean Corpuscular Volume 85.4 fL (81.0-99.0); Mean Platelet Volume 9.1 fL (7.4-10.4); Platelet Count 297 10^3/uL (130-400); Red Blood Cell Count 3.22 10^6/uL (4.20-5.40); Red Cell Dist. Width 15.5 % (11.5-14.5); White Blood Cell Count 11.8 10^3/uL (4.8-10.8)
[2024-08-24 06:41] LABS: Blood Urea Nitrogen 20 mg/dl (7-17); Calcium 9.3 mg/dl (8.4-10.2); Carbon Dioxide 23 mmol/L (22-30); Chloride 105 mmol/L (98-107); Estimated Creatinine Clearance 66 ml/min; Glucose 105 mg/dl (70-99); Potassium 4.1 mmol/L (3.5-5.1); Sodium 139 mmol/L (135-145); eGFR > 60.00
[2024-08-24 07:20] VITALS: BP 133/70
[2024-08-24 07:23] LABS: Glucose - Point of Care 123 mg/dl (70-99)
--- NOTE | 2024-08-24 08:03 | W.PN.HOSP.TC ---
Today's Communication/Plan
-
Outpatient IV antibiotics
D/C to Rehab today
Assessment / Plan
Assessment / Plan
Impression/plan
#Mitral valve endocarditis, acute
-single BCx done in PCP's office. Positive for Staphylococcus epidermidis
-MERARY 08/21 revealed a small, highly mobile vegetation on the ventricular surface of the posterior mitral valve leaflet apparatus. No evidence of perivalvular extension or significant valve dysfunction.
-Follow blood cultures daily, BC in the hospital negative.
-CT Surgery input appreciated. recommend continuing antibiotics and repeating MERARY in a few weeks.
-Cardiology input appreciated. Outpatient MERARY in 4 weeks.
-Infectious disease input appreciated. Discontinue further ceftriaxone and vancomycin.Transition to cefazolin 2 g IV every 8 hours, 6-week course of therapy.
-PICC line placed
#Diabetes Mellitus, Type II
-HgbA1c 5.9
-Monitor sugars and continue coverage insulin
#Essential Hypertension
-Continue home Spironolactone and Verapamil
#Restless Leg Syndrome
-Continue pramipexole
#GERD
-Continue Lansoprazole
#Obstructive Sleep Apnea
-Continue CPAP
DVT Proph: Lovenox
Code Status: Full Code
Anticipated Discharge: Today
Subjective/Interval History
-
Date of Service: August 24, 2024
Objective Data
-
Labs:
Laboratory Results
08/24/24
05:50
WBC 11.8 H
Hgb 9.0 L
Hct 27.5 L
Plt Count 297
Sodium 139
Potassium 4.1
Chloride 105
Carbon Dioxide 23
BUN 20 H
Creatinine 0.9
Glucose 105 H
Calcium 9.3
Vital Signs:
Vital Signs
Temp Pulse Resp BP Pulse Ox
98.1 F 79 20 137/71 95
08/23/24 23:18 08/23/24 23:18 08/23/24 23:18 08/23/24 23:18 08/23/24 23:18
I&O
08/23/24 08/24/24 08/25/24
06:59 06:59 06:59
Intake Total 960 / 960 920 / 920
Balance 960 / 960 920 / 920
Review of Systems
-
All other systems: Reviewed and negative (Except as documented)
Physical Exam
-
General: No Apparent Distress
Respiratory: Clear to Auscultation
Cardiac: S1/S2
GI: Soft, Nontender, Nondistended and Normal Bowel Sounds
[2024-08-24] MEDS: NOVOLOG FLEXPEN-LOW RESISTANCE SC ×3 (08:51→16:50)
[2024-08-24] MEDS: CALAN EXTENDED RELEASE 240 MG PO (08:56)
[2024-08-24] MEDS: CYMBALTA DELAYED RELEASE 20 MG PO (08:57)
[2024-08-24] MEDS: LIDOCAINE 4% PATCH 1 PATCH TOPICAL (08:57)
[2024-08-24] MEDS: PROTONIX 40 MG PO ×2 (08:57→21:06)
[2024-08-24] MEDS: CLARITIN 10 MG PO (08:57)
[2024-08-24] MEDS: ALDACTONE 25 MG PO (08:57)
[2024-08-24] MEDS: KCL 10 MEQ PO (08:58)
--- NOTE | 2024-08-24 11:20 | CM ---
Addendum entered by Shilpi Rick, RN 08/24/24 16:34:
Caron from [facility] spoke with pt explained abx and supplies would cost $150.00 / week.Pt agrees to pay.
[facility] said VN will meet her at her house tomorrow.
[facility] will delivery med to home by 2 pm.
Pt and dgt will be taught IV infusion .
Original Note:
Continue IV antibiotics.
MD indicate pt needs 4 weeks IV antibiotics.
PT OT = home VN VS no needs.
Spoke with pt she lives with dgt that works. Pt said she would be willing to learn home infusion.
Choice given she agreed with [facility] and [facility].
Obtained IV antibiotics script plus clinical faxed to [facility] . LM with Caron at [facility]
Referral placed in care port for [facility] and LM with Mis[facility].
Awaiting [facility] and [facility] to be able to accommodate same day visit as dc.
Monique dgt will drive her home.
PLAN Home with [facility] and [facility] fax [phone]
[2024-08-24 11:33] LABS: Glucose - Point of Care 132 mg/dl (70-99)
--- NOTE | 2024-08-24 15:21 | W.PN.ID1 ---
Date of Service
Date of Service: August 24, 2024
Today's Communication
Continue antibiotics. Will follow-up in the outpatient setting.
Assessment / Plan
[place] mitral valve endocarditis
- Outpatient blood culture positive for Staphylococcus epidermidis (2 sets)
- Cultures here negative
Leukocytosis
Elevated ESR
Elevated CRP
Chronic SOB
HTN
GERD
Pulmonary fibrosis
BRANDI
DM type II
restless leg syndrome
Recommendations:
White count improved.
Outpatient cultures from [facility] reviewed. Coag negative staph is methicillin susceptible.
Continue cefazolin 2 g IV every 8 hours.
Will need 6-week course of therapy. IV infusion form given to CM.
Cardiology notes reviewed; patient for possible repeat cardiac imaging in approximately [address] line in place
����������������������������������������������������������
Chief Complaint
-: Bacteremia
Subjective / Review of Systems
Review of Systems: No Fever and No Chills
Vital Signs / Physical Exam
Vital Signs
Vital Signs
Temp Pulse Resp BP Pulse Ox
97.8 F 73 20 133/70 93
08/24/24 07:20 08/24/24 08:56 08/24/24 07:20 08/24/24 08:56 08/24/24 07:20
Physical Exam
Constitutional: No Acute Distress, Comfortable and Non-toxic
Eyes: No Conjunctival Hemorrhage and Sclera Anicteric
Cardiovascular: S1/S2; Negative S3/S4
Pulmonary: Non Labored
Gastrointestinal: Soft, Non Tender and Non Distended
Extremities: Negative Splinter Hemorrhage or Janeway Lesions
Neurological: Awake and Alert
Psychological: Calm
Objective Data
Lab Data
Lab Results
08/24/24 05:50
08/24/24 05:50
ESR 80 mm/hour (0-20) H 08/22/24 08:40
Estimated Creat Clear 66 ml/min 08/24/24 05:50
Lactic Acid 1.1 mmol/L (0.7-2.0) 08/20/24 20:39
Total Bilirubin 0.7 mg/dl (0.2-1.3) 08/20/24 16:26
AST 39 U/L (14-36) H 08/20/24 16:26
ALT 15 U/L (0-35) 08/20/24 16:26
Alkaline Phosphatase 112 U/L (38-126) 08/20/24 16:26
C-Reactive Protein 56.00 mg/L (0.0-10.00) H 08/22/24 08:40
Most recent labs reviewed.
Micro Results:
08/20/24 21:13 Blood Culture - Preliminary
Blood/Venous No Growth in 72 hours- Final report to follow
08/20/24 21:13 Blood Culture - Preliminary
Blood/Venous No Growth in 72 hours- Final report to follow
08/20/24 20:39 Blood Culture - Preliminary
Blood/Venous No Growth in 72 hours- Final report to follow
08/20/24 22:52 Urine Culture - Final
Urine Klebsiella pneumoniae
08/18/24
11:47 Blood Culture
Anaerobic culture : Staph. epi
Aerobic culture : NG @ 5d
08/18/24
11:55 Blood Culture
Anaerobic culture : Staph. epi
Aerobic culture : NG @ 5d
Staphylococcus epidermidis
Clindamycin S <=0.25
Erythromycin S <=0.25
Gentamicin S <=0.5
Oxacillin S <=0.25
Tetracycline S <=1
Trimethoprim/sulfa S <=10
Vancomycin S =1
(Cultures performed at [facility])
Imaging:
08/21/2024 ECHO (MERARY): A small, highly mobile vegetation on the ventricular surface of the posterior mitral valve leaflet is noted. No evidence of perivalvular extension or significant valve dysfunction noted. Please see full dictation for
additional detail.
08/16/2024 ECHO (TTE): LVEF approximately 63%. Right ventricle not well-visualized. Left atrium moderately dilated. There is mild mitral valve leaflet thickening with moderate posterior mitral annular calcification. There is mild mitral
regurgitation and the noted is a mobile echodensity measuring 0.8 x 0.8 cm which appears to be attached to the ventricular surface of the calcified posterior mitral annulus, which could be an extension of complex caseous mitral annular
calcification, or vegetation. Please see full dictation for additional detail. (Film performed at [place] @ [place])
[2024-08-24 15:54] VITALS: BP 139/74
[2024-08-24 16:24] LABS: Glucose - Point of Care 133 mg/dl (70-99)
[2024-08-24] MEDS: LOVENOX 40 MG SC (17:05)
[2024-08-24] MEDS: MONISTAT 7 VAGINAL CREAM VAG (21:00)
[2024-08-24] MEDS: MIRAPEX, GENERIC 0.5 MG PO (21:05)
[2024-08-24] MEDS: SINGULAIR 10 MG PO (21:06)
[2024-08-24 21:29] LABS: Glucose - Point of Care 143 mg/dl (70-99)
[2024-08-24 23:55] VITALS: BP 105/50
[2024-08-25] MEDS: ANCEF 10 IV ×2 (00:39→08:05)
[2024-08-25 06:00] VITALS: BMI 47.2
[2024-08-25 07:25] VITALS: BP 127/60
[2024-08-25 07:37] LABS: Glucose - Point of Care 112 mg/dl (70-99)
[2024-08-25] MEDS: TYLENOL 650 MG PO (07:43)
[2024-08-25] MEDS: NOVOLOG FLEXPEN-LOW RESISTANCE SC (07:48)
[2024-08-25] MEDS: CYMBALTA DELAYED RELEASE 20 MG PO (08:05)
[2024-08-25] MEDS: KCL 10 MEQ PO (08:05)
[2024-08-25] MEDS: CLARITIN 10 MG PO (08:05)
[2024-08-25] MEDS: CALAN EXTENDED RELEASE 240 MG PO (08:05)
[2024-08-25] MEDS: ALDACTONE 25 MG PO (08:05)
[2024-08-25] MEDS: LIDOCAINE 4% PATCH 1 PATCH TOPICAL (08:06)
[2024-08-25] MEDS: PROTONIX 40 MG PO (08:06)
[2024-08-25 08:49] LABS: % Basophils 0.8 % (0-2); % Immature Granulocytes 0.9 % (0-0.5); % Lymphocytes 16.2 % (20.5-51.1); % Monocytes 6.4 % (1.7-9.3); % Neutrophils 72.7 % (42.2-75.2); Absolute Basophils 0.1 10^3/uL (0-0.2); Absolute Eosinophils 0.3 10^3/uL (0-0.7); Absolute Immature Granulocytes 0.1 10^3/uL (0-0.05); Absolute Lymphocytes 1.7 10^3/uL (1.2-3.4); Absolute Monocytes 0.7 10^3/uL (0.1-0.6); Absolute Neutrophils 7.4 10^3/uL (1.4-6.5); Hematocrit 26.9 % (37.0-47.0); Hemoglobin 8.8 g/dL (12.0-16.0); Mean Corp Hgb Conc. 32.7 g/dL (33.0-37.0); Mean Corpuscular Hgb 27.9 pg (27.0-31.0); Mean Corpuscular Volume 85.4 fL (81.0-99.0); Nucleated Red Blood Cells % 0 %; Platelet Count 260 10^3/uL (130-400); Red Blood Cell Count 3.15 10^6/uL (4.20-5.40); Red Cell Dist. Width 15.7 % (11.5-14.5); White Blood Cell Count 10.2 10^3/uL (4.8-10.8)
--- NOTE | 2024-08-25 09:43 | W.PN.ID1 ---
Date of Service
Date of Service: August 25, 2024
Today's Communication
Continue antibiotics.
Assessment / Plan
[place] mitral valve endocarditis
- Outpatient blood culture positive for Staphylococcus epidermidis (2 sets)
- blood cultures here (prior to abxnegative
Leukocytosis
Elevated ESR
Elevated CRP
Asymptomatic bacteriuria (Klebsiella pneumoniae)
Chronic SOB
HTN
GERD
Pulmonary fibrosis
BRANDI
DM type II
restless leg syndrome
Recommendations:
White count improved.
Outpatient cultures from [facility] reviewed. Coag negative staph is methicillin susceptible.
Continue cefazolin 2 g IV every 8 hours to complete a 6-week course.
Will follow-up in office in 2 to 3 weeks.
Cardiology notes reviewed; patient for possible repeat cardiac imaging in approximately [address] line in place
����������������������������������������������������������
Chief Complaint
-: Bacteremia
Subjective / Review of Systems
Review of Systems: No Fever and No Chills
Vital Signs / Physical Exam
Vital Signs
Vital Signs
Temp Pulse Resp BP Pulse Ox
98.2 F 75 20 127/60 96
08/25/24 07:25 08/25/24 07:25 08/25/24 07:25 08/25/24 07:25 08/25/24 07:25
Physical Exam
Constitutional: No Acute Distress, Comfortable and Non-toxic
Eyes: No Conjunctival Hemorrhage and Sclera Anicteric
Cardiovascular: Regular Rate and S1/S2; Negative S3/S4
Pulmonary: Non Labored
Gastrointestinal: Soft, Non Tender and Non Distended
Extremities: Negative Splinter Hemorrhage or Janeway Lesions
Neurological: Awake and Alert
Psychological: Calm
Lines: PICC (Right upper extremity. No erythema or tenderness.)
Objective Data
Lab Data
Lab Results
08/25/24 08:40
08/24/24 05:50
ESR 80 mm/hour (0-20) H 08/22/24 08:40
Estimated Creat Clear 66 ml/min 08/24/24 05:50
Lactic Acid 1.1 mmol/L (0.7-2.0) 08/20/24 20:39
Total Bilirubin 0.7 mg/dl (0.2-1.3) 08/20/24 16:26
AST 39 U/L (14-36) H 08/20/24 16:26
ALT 15 U/L (0-35) 08/20/24 16:26
Alkaline Phosphatase 112 U/L (38-126) 08/20/24 16:26
C-Reactive Protein 56.00 mg/L (0.0-10.00) H 08/22/24 08:40
Most recent labs reviewed.
Micro Results:
08/20/24 21:13 Blood Culture - Preliminary
Blood/Venous No Growth in 4 days- Final report to follow
08/20/24 21:13 Blood Culture - Preliminary
Blood/Venous No Growth in 4 days- Final report to follow
08/20/24 20:39 Blood Culture - Preliminary
Blood/Venous No Growth in 4 days- Final report to follow
08/20/24 22:52 Urine Culture - Final
Urine Klebsiella pneumoniae
08/18/24
11:47 Blood Culture
Anaerobic culture : Staph. epi
Aerobic culture : NG @ 5d
08/18/24
11:55 Blood Culture
Anaerobic culture : Staph. epi
Aerobic culture : NG @ 5d
Staphylococcus epidermidis
Clindamycin S <=0.25
Erythromycin S <=0.25
Gentamicin S <=0.5
Oxacillin S <=0.25
Tetracycline S <=1
Trimethoprim/sulfa S <=10
Vancomycin S =1
(Cultures performed at [facility])
Imaging:
08/21/2024 ECHO (MERARY): A small, highly mobile vegetation on the ventricular surface of the posterior mitral valve leaflet is noted. No evidence of perivalvular extension or significant valve dysfunction noted. Please see full dictation for
additional detail.
08/16/2024 ECHO (TTE): LVEF approximately 63%. Right ventricle not well-visualized. Left atrium moderately dilated. There is mild mitral valve leaflet thickening with moderate posterior mitral annular calcification. There is mild mitral
regurgitation and the noted is a mobile echodensity measuring 0.8 x 0.8 cm which appears to be attached to the ventricular surface of the calcified posterior mitral annulus, which could be an extension of complex caseous mitral annular
calcification, or vegetation. Please see full dictation for additional detail. (Film performed at [place] @ [place])
--- NOTE | 2024-08-25 11:19 | W.PN.HOSP.TC ---
Today's Communication/Plan
-
Discharge on IV cefazolin for 6-week course
Repeat transesophageal echocardiogram in 4 weeks
Follow-up with infectious disease in office in 2-3
Assessment / Plan
Assessment / Plan
#Mitral valve endocarditis, acute
-single BCx done in PCP's office. Positive for Staphylococcus epidermidis
-MERARY 08/21 revealed a small, highly mobile vegetation on the ventricular surface of the posterior MV leaflet
-Blood cultures from outpatient setting grew staph epidermidis with sensitivity to cefazolin
-CT Surgery input appreciated. recommend continuing antibiotics and repeating MERARY in a few weeks.
-Cardiology input appreciated. Outpatient MERARY in 4 weeks.
-Infectious disease following, now on cefazolin therapy
-Will continue IV cefazolin for 6-week course, follow-up in office with ID in 2 to 3-week
-Plan for repeat MERARY as an outpatient in 4 weeks
-Consideration for surgical mitral valve replacement to be made after repeat MERARY
#Diabetes Mellitus, Type II
-HgbA1c 5.9
-Monitor sugars and continue coverage insulin
#Essential Hypertension
-Continue home Spironolactone and Verapamil
#Restless Leg Syndrome
-Continue pramipexole
#GERD
-Continue Lansoprazole
#Obstructive Sleep Apnea
-Continue CPAP
DVT Proph: Lovenox
Diet: Regular
Code Status: Full Code
Anticipated Discharge: Today
Subjective/Interval History
-
Date of Service: August 25, 2024
Seen and examined at the bedside. No acute events overnight. AFVSS this morning.
Patient was in street close and ready to be discharged. States she needs to be home by 1 PM to meet with team delivering her antibiotic
She denies any acute complaints.
Objective Data
-
Labs:
Laboratory Results
08/25/24
08:40
WBC 10.2
Hgb 8.8 L
Hct 26.9 L
Plt Count 260
Vital Signs:
Vital Signs
Temp Pulse Resp BP Pulse Ox
98.2 F 75 20 127/60 96
08/25/24 07:25 08/25/24 07:25 08/25/24 07:25 08/25/24 07:25 08/25/24 07:25
I&O
08/24/24 08/25/24 08/26/24
06:59 06:59 06:59
Intake Total 920 / 920 900 / 900
Balance 920 / 920 900 / 900
Review of Systems
-
History Source: Patient
All other systems: Reviewed and negative
Physical Exam
-
General: No Apparent Distress, Comfortable and Obese
HEENT: Normocephalic, Atraumatic and Moist Mucous Membranes; Negative Good Dentition
Respiratory: Clear to Auscultation and Non Labored Respirations; Negative Wheezes, Rales, Rhonchi or Accessory Resp Muscle Use
Cardiac: Regular Rhythm, S1/S2 and Murmur (Systolic, right sternal border, 2/6); Negative Rub, JVD or Gallop
GI: Soft, Nontender, Nondistended and Normal Bowel Sounds
Musculoskeletal: No Clubbing, No Cyanosis and No Edema
Skin: Warm and Dry; Negative Rash
Neuro: AO x 3, Nonfocal/Grossly Intact and Central Nerve's Intact
Psych: Calm
Data Reviewed
-
Labs: Labs Reviewed by me and Discussed with Patient
--- NOTE | 2024-08-25 11:28 | W.DCSUMMARY ---
Discharge Summary
Discharge Data
Date of Admission: 08/20/24
Date of Discharge: 08/25/24
-
Pending Results: Yes
Additional Pending Results:
Transesophageal echocardiogram 4 weeks after discharge
Hospital Course
79-year-old female with T2DM, GERD, BRANDI on CPAP, pulmonary fibrosis, HTN that presented with outpatient blood cultures positive for Staphylococcus epidermidis. On arrival was started on empiric antibiotics with vancomycin and ceftriaxone.
Transesophageal echocardiogram here showed vegetation of posterior mitral valve leaflet. Discussion was had with CT surgery and infectious disease team. Per CT surgery the risks of intervention currently outweigh benefits, plan for extended IV
antibiotic course. Repeat cultures negative, final cultures from outpatient setting showed sensitivity to cefazolin. Was transition to IV cefazolin, care established to help with administration of IV cefazolin 2 g every 8 hours with plan for
6-week course. Patient will follow-up with cardiology for repeat transesophageal echo 4 weeks after discharge. Consideration for mitral valve replacement to be made at that time based off of clinical progression.
Patient does have complaint of frequent vaginal candidiasis infections while on antibiotics. Requested once weekly dosing of fluconazole while on antibiotic course. Sent to her pharmacy. Should follow-up with primary care physician as well after
discharge.
Discharge Plan
-
Patient Disposition: Home (Routine Discharge)
Discharge Diagnosis/Procedures: [place] mitral valve endocarditis
Condition: Fair
Diet: Regular
Activity: No restrictions
Driving Restrictions: No driving for 24 hours
Other Services: VN
Specialty Instructions: Weigh Daily- Call MD for wt gain/loss 3 lbs overnight/5 lbs in 1 week
Activity Restrictions/Additional Instructions:
Schedule follow-up appointment with family doctor within 7 days of discharge
Call infectious disease office to schedule follow-up appointment for 2 to 3 weeks after your discharge
Call financial project manager office to schedule follow-up appointment for repeat MERARY 4 weeks after discharge
Referrals:
Matt Saucedo DO [Active] - in two to four weeks
Lukasz Wahl MD [Active] - in two to four weeks
UNKNOWN - PT DOES,NOT KNOW [Family Provider] -
Additional Discharge Medication Instructions: Continue IV cefazolin 2 g every 8 hours to complete 6 weeks (final day of antibiotics to be given new in office by ID referral)
Prescriptions:
New
cefazolin 10 gram Recon Soln
2 g IV Q8H 42 Days Qty: 10 0RF
fluconazole 150 mg tablet
See Rx Instructions .ROUTE .COMPLEX Qty: 6 0RF
Rx Instructions:
Take 1 tab 1x weekly while on IV antibiotics
Continued
spironolacton-hydrochlorothiaz 25-25 mg Tablet
1 tab PO DAILY
pramipexole 0.5 mg Tablet
0.5 mg PO HS
lansoprazole 30 mg Capsule,Delayed Release(Dr/Ec)
30 mg PO BID
verapamil 240 mg Tablet Extended Release
240 mg PO DAILY
montelukast 10 mg Tablet
10 mg PO HS
fluticasone propionate 50 mcg/actuation Nemacolin,Suspension
1 spray INTRANASAL HSPRN PRN (Reason: conjestion)
loratadine [Claritin] 10 mg Tablet
10 mg PO DAILY
potassium chloride [Klor-Con M10] 10 mEq Tablet,Er Particles/Crystals
10 meq PO DAILY
duloxetine 20 mg Capsule,Delayed Release(Dr/Ec)
20 mg PO DAILY
Discontinued
fluconazole 150 mg Tablet
150 mg PO DAILY
Patient Comments:
08/20/24: Unsure if patient takes this medication still, no pharmacy fill records or eCW records of patient taking this.
Discharge Orders:
Discharge Patient (As Directed); Ordered 08/25/24
Ordered By: Hugo Saini
Discharge Date and Time
Print Language: ICELANDIC
[2024-08-25 11:50] LABS: Glucose - Point of Care 189 mg/dl (70-99)
--- NOTE | 2024-08-25 12:07 | CM ---
CM following re: discharge planning.
reviewed pt's chart, met with pt.
Discharge order is noted. Pt is aware and she stated that [facility] will be at her house at 1:30 p.m. and [facility] will deliver medication at 2:00 p.m. Pt stated her daughter will transport home.
IMM reviewed. placed on chart, pt has a copy.
[facility] fax [phone]
D/C plan: Home with [facility] and [facility]. Daughter to transport.
[2024-08-25 12:54] VITALS: BP 142/67
--- NOTE | 2024-08-25 13:13 | PTCARENOTE ---
Discharge paperwork printed and reviewed with patient who verbalized understanding. Pt transported off the floor with PICC line in place by PCT via wheelchair.
== END 2024-08-25 12:45 | disposition home health service (06) | DRG 289 ==
LOC: 4 EAST ACU 22:34
PROVIDERS: Physician Assistant; Physician Assistant Medical; Student in an Organized Health Care Education/Training Program; ADMITTING PHYSICIAN Internal Medicine; ATTENDING PHYSICIAN Internal Medicine; CONSULT PHYSICIAN Internal Medicine Cardiovascular Disease; CONSULT PHYSICIAN Internal Medicine Infectious Disease; EMERGENCY PHYSICIAN Emergency Medicine; OTHER PHYSICIAN Hospitalist
PROC: B24BZZ4 Ultrasonography of Heart with Aorta, Transesophageal (ICD-10-PCS; 2024-08-21)
DX: I33.0 Acute and subacute infective endocarditis (principal); Z68.42 Body mass index [BMI] 45.0-49.9, adult; E66.01 Morbid (severe) obesity due to excess calories; R82.71 Bacteriuria; G47.33 Obstructive sleep apnea (adult) (pediatric); E11.9 Type 2 diabetes mellitus without complications; I10 Essential (primary) hypertension; K21.9 Gastro-esophageal reflux disease without esophagitis; G25.81 Restless legs syndrome
CPT/HCPCS: 70355; 71045; 71046; 71275; 74174; 80048; 80053; 81003; 81015; 82962; 83036; 83605; 83880; 84484; 85025; 85027; 85652; 86140; 87040; 87077; 87086; 87186; 93005; 93312; 93320; 93325; 93880; 96365; 96366; 97116; 97162; 97166; 99285; Q9967

== ENCOUNTER 2024-09-26 06:42 | Day surgery (SDC) | payer MEDICARE, OTHER, SELFPAY ==
[2024-09-19 13:21] VITALS: BMI 48.0
== END 2024-09-26 09:00 | disposition home or self-care (01) ==
LOC: CATH 06:42
PROVIDERS: ATTENDING PHYSICIAN Student in an Organized Health Care Education/Training Program; FAMILY PHYSICIAN Internal Medicine Addiction Medicine
DX: I08.3 Combined rheumatic disorders of mitral, aortic and tricuspid valves (principal); R06.09 Other forms of dyspnea; I10 Essential (primary) hypertension; K21.9 Gastro-esophageal reflux disease without esophagitis; J84.10 Pulmonary fibrosis, unspecified; G47.33 Obstructive sleep apnea (adult) (pediatric); R73.03 Prediabetes; E66.01 Morbid (severe) obesity due to excess calories; Z68.42 Body mass index [BMI] 45.0-49.9, adult
CPT/HCPCS: 93312; 93320; 93325

== ENCOUNTER → 2024-12-08 11:03 | Outpatient (REF) | payer MEDICARE, OTHER, SELFPAY | LOC: PAVMRI 11:03 | PROVIDERS: ATTENDING PHYSICIAN Physician Assistant Medical; FAMILY PHYSICIAN Family Medicine | DX: M19.011 Primary osteoarthritis, right shoulder (principal) | CPT/HCPCS: 73221 ==

== ENCOUNTER 2025-03-07 08:37 | Inpatient (IN) | payer MEDICARE, OTHER, SELFPAY ==
[2025-02-25 09:01] LABS: Hematocrit 36.5 % (37.0-47.0); Hemoglobin 11.7 g/dL (12.0-16.0); Mean Corp Hgb Conc. 32.1 g/dL (33.0-37.0); Mean Corpuscular Hgb 27.9 pg (27.0-31.0); Mean Corpuscular Volume 87.1 fL (81.0-99.0); Mean Platelet Volume 9.9 fL (7.4-10.4); Platelet Count 322 10^3/uL (130-400); Red Blood Cell Count 4.19 10^6/uL (4.20-5.40); Red Cell Dist. Width 15.3 % (11.5-14.5); White Blood Cell Count 14.4 10^3/uL (4.8-10.8)
[2025-02-25 09:27] LABS: ALT (SGPT) 15 U/L (0-35); AST (SGOT) 19 U/L (14-36); Alkaline Phosphatase 142 U/L (38-126); Blood Urea Nitrogen 21 mg/dl (7-17); Calcium 9.9 mg/dl (8.4-10.2); Carbon Dioxide 25 mmol/L (22-30); Chloride 105 mmol/L (98-107); Glucose 135 mg/dl (70-99); Iron 56 ug/dl (37-170); Potassium 4.3 mmol/L (3.5-5.1); Sodium 141 mmol/L (135-145); Total Bilirubin 0.6 mg/dl (0.2-1.3); Total Protein 7.5 g/dl (6.3-8.2); eGFR > 60.00
[2025-02-25 09:36] LABS: Percent Saturation 12 % (20-50); Total Iron Binding Capacity 462 ug/dl (265-497)
[2025-02-25 09:59] LABS: Ferritin 9.6 ng/ml (11.1-264.0)
[2025-02-25 10:14] LABS: Vitamin B12 207 pg/ml (239-931)
--- NOTE | 2025-02-25 13:16 | CM ---
Addendum entered by Radha Melchor RN 02/26/25 12:58:
CM reviewed medical records. CM spoke with patient via Phone. Patient confirmed demographics. Patient lives independently with daughter in a first floor apartment. Patient has a history of VN with [facility], but is not currently on service. Patient has
been to [facility] and stated that she has a 'terrible' experience there and would not like to return. Patient relies on walkers for ambulation. Patient has oxygen that is bled in at night time into her Bipap. Bipap is from '[facility]
Supply'.
Patient is active with her PCP.
Patient has medication coverage and uses [facility].
Patient is agreeable to SNF placement. CM advised patient regarding placement process.
PLAN: SNF in local area close to her home or [place].
Original Note:
CM was updated by SAVANAH Castro that patient may need SNF post operatively. Patient is NOT eligible for [facility] waiver program.
[2025-02-25 13:43] VITALS: BMI 48.0
[2025-02-25 14:44] VITALS: BMI 48.0
[2025-03-07] VITALS (14 sets, daily range): BP systolic 112–150; BP diastolic 64–104; PULSE 78–79; O2SAT 96
--- NOTE | 2025-03-07 07:58 | W.PN.UPDATE ---
Update Note
Progress Note Update
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
DVT prophylaxis - ASA, b/l venous foot pumps
HTN - + parameters - monitor BP
H/o mitral valve endocarditis 2* Staph epi 08/2024, methicillin sensitive - IV Ancef helio-op will cover
- Doxycycline upon d/c
Asthma
Pulmonary fibrosis
BRANDI, BiPAP compliant
Chronic HARVEY
- Monitor O2
- Encourage IS
- Standing order nebs
- IV Decadron BID
GERD - continue PPI therapy
Ambulatory dysfunction - consult PT in addition to OT
- Await recs from therapy. Possible SNF d/t functional status?
Multifactorial anemia due to iron and B12 deficiency - IV iron and IM B12 during inpt stay
- Continue PO iron and sublingual B12 upon d/c
- Hgb in AM
Occasional mild dysphagia.
Restless leg syndome
Depression
Anxiety
H/o asymptomatic bacteriuria, Klebsiella, 07/2024
Prediabetes, A1c 6.0.
Morbid obesity, BMI 47.9
[2025-03-07] MEDS: TYLENOL 1000 MG PO (08:41)
[2025-03-07] MEDS: CELEBREX 200 MG PO (08:41)
[2025-03-07] MEDS: NORMOSOL-R/PLASMALYTE-A 1000 IV ×3 (08:49→15:17)
[2025-03-07] MEDS: FERRLECIT 110 MG IV (15:17)
[2025-03-07] MEDS: CYANOCOBALAMIN 1000 MCG IM (15:21)
[2025-03-07] MEDS: TYLENOL 650 MG PO ×2 (15:21→20:34)
[2025-03-07] MEDS: KCL 10 MEQ PO (15:21)
[2025-03-07] MEDS: CLARITIN 10 MG PO (15:21)
[2025-03-07] MEDS: CYMBALTA DELAYED RELEASE 20 MG PO (15:21)
[2025-03-07] MEDS: DUONEB 3 ML INH ×2 (15:44→19:46)
--- NOTE | 2025-03-07 16:02 | PTCARENOTE ---
Pt arrived to 2S in bed. Full assessment completed. RUE maintained in sling, mepilex C/D/I, generalized bruising noted to RUE. RUE with decreased movement and sensation, able to wiggle to fingers, neurovascular assessment otherwise WDL. RUE NWB
status maintained. Nasal cannula maintained. Bed locked and in the lowest position, safety maintained. Oriented to room and call kim.
[2025-03-07] MEDS: ASPIRIN 325 MG PO (17:07)
[2025-03-07] MEDS: ANCEF 5 IV (17:08)
[2025-03-07] MEDS: BACTROBAN 2% OINTMENT 1 APPLIC NASAL (20:33)
[2025-03-07] MEDS: PROTONIX 40 MG PO (20:34)
[2025-03-07] MEDS: SENOKOT PO (20:34)
[2025-03-07] MEDS: COLACE PO (20:34)
[2025-03-07] MEDS: DECADRON 4 MG IV (20:34)
[2025-03-07] MEDS: MIRAPEX, GENERIC 0.5 MG PO (21:23)
[2025-03-07] MEDS: NEURONTIN 300 MG PO (21:23)
[2025-03-07] MEDS: SINGULAIR 10 MG PO (21:26)
[2025-03-08] VITALS (7 sets, daily range): BP systolic 123–144; BP diastolic 69–78; PULSE 71–76; O2SAT 100
[2025-03-08] MEDS: TYLENOL PO ×3 (01:00→23:47)
[2025-03-08] MEDS: ANCEF 5 IV (02:36)
[2025-03-08] MEDS: DUONEB INH (07:26)
--- NOTE | 2025-03-08 08:33 | W.PN.ORTHO ---
Today's Communication / Plan
-
Continue to trend hgb and monitor O2.
D/c when clinically stable and SNF bed available.
Assessment
.
Distal Motor Intact: Yes
Dressing:
Clean, dry and intact.
Assessment:
R shoulder OA w/ RCT s/p R Reverse LLOYD w/ Dr Scherer 03/07/25
DVT prophylaxis - ASA, b/l venous foot pumps
HTN - + parameters - monitor BP
H/o mitral valve endocarditis 2* Staph epi 08/2024, methicillin sensitive - IV Ancef helio-op will cover
- Doxycycline to follow. Will start while inpatient.
Asthma
Pulmonary fibrosis
BRANDI, BiPAP compliant
Chronic HARVEY
- Monitor O2
- Encourage IS
- Standing order nebs changed to prn d/t patient preference. Refused last neb tx.
- IV Decadron BID
GERD - continue PPI therapy
Ambulatory dysfunction - consult PT in addition to OT
- PT and OT currently recommend SNF d/t functional limitations
- On fall precautions
Multifactorial anemia due to iron and B12 deficiency - Hgb 11.7 pre-op -> 10 post-op
- Hgb not unreasonable given surgery; however, could also be partially hemodilutional d/t IVF
- IV iron and IM B12 during inpt stay
- Continue PO iron and sublingual B12 upon d/c
- Trend Hgb. Avoid blood transfusion unless hgb <8 and hemodynamically unstable
Occasional mild dysphagia
Restless leg syndome
Depression
Anxiety
H/o asymptomatic bacteriuria, Klebsiella, 07/2024
Prediabetes, A1c 6.0.
Morbid obesity, BMI 47.9
Plan
.
Surgery / Date: R Reverse LLOYD w/ Dr Scherer 03/07/25
DVT Prophylaxis: Aspirin
Activity:
Out of bed.
PT/OT
Discharge Plan: SNF
Subjective
.
.:
Patient examined resting in her chair.
Reporting 4-5/10 R shoulder pain but is tolerating.
Denies any new significant complaints.
PT and OT recommending SNF.
Vital Signs and Labs
.
Vital Signs and Labs:
Lab Results
03/08/25 06:38
02/25/25 08:03
Temp Pulse Resp BP Pulse Ox
98.0 F 71 18 122/70 94
03/07/25 23:00 03/08/25 07:26 03/08/25 07:26 03/07/25 23:00 03/08/25 07:26
Physical Exam
-
HEENT: No pallor, cyanosis, or jaundice. Throat clear.
NECK: Supple. No JVD.
RESPIRATORY: Distant lung sounds throughout but overall clear.
CVS: S1, S2 normal. RRR.�
ABDOMEN: Soft, non-tender. No distension. Morbidly obese.
EXTREMITIES: Bruising noted along RUE. + RUE sling. Able to wiggle fingers b/l. Good painter ski edge/radial pulses b/l. Strength equal, no calf pain with palpation/dorsiflexion.
REAL ESTATE SALES ASSOCIATE: AOx3. No focal deficits. wellness spa manager grossly intact
[2025-03-08] MEDS: CLARITIN 10 MG PO (08:36)
[2025-03-08] MEDS: CELEBREX 200 MG PO (08:36)
[2025-03-08] MEDS: ASPIRIN 325 MG PO (08:37)
[2025-03-08] MEDS: ALDACTONE PO (08:37)
[2025-03-08] MEDS: SENOKOT 17.2 MG PO ×2 (08:37→19:52)
[2025-03-08] MEDS: CYMBALTA DELAYED RELEASE 20 MG PO (08:37)
[2025-03-08] MEDS: PROTONIX 40 MG PO ×2 (08:37→19:54)
[2025-03-08] MEDS: DECADRON 4 MG IV ×2 (08:38→19:53)
[2025-03-08] MEDS: COLACE 100 MG PO ×2 (08:38→19:54)
[2025-03-08] MEDS: KCL 10 MEQ PO (08:38)
[2025-03-08] MEDS: ORETIC PO (08:38)
[2025-03-08] MEDS: CALAN EXTENDED RELEASE PO (08:38)
[2025-03-08] MEDS: TYLENOL 650 MG PO ×4 (08:38→19:52)
[2025-03-08] MEDS: CYANOCOBALAMIN 1000 MCG IM (08:39)
[2025-03-08] MEDS: BACTROBAN 2% OINTMENT 1 APPLIC NASAL ×2 (08:39→19:53)
--- NOTE | 2025-03-08 09:07 | CM ---
Addendum entered by Radha Melchor RN 03/08/25 11:09:
Patient has been accepted to [facility] for 03/10 transfer.
[place]
Report
[phone]

Addendum entered by Radha Melchor RN 03/08/25 09:21:
Alexey Dash is considering patient for Tuesday discharge. Patient is aware that her daughter will have to bring CPAP to [facility].
Original Note:
CM reviewed medical records. CM met with patient in room. Patient confirmed she is agreeable to SNF. Patient stated that she would prefer [facility] if able to be accepted. CM is awaiting acceptance.
[2025-03-08] MEDS: FERRLECIT 110 MG IV (15:20)
[2025-03-08] MEDS: VIBRAMYCIN 100 MG PO (19:53)
[2025-03-08] MEDS: FLORASTOR 250 MG PO (19:53)
[2025-03-08] MEDS: ROXICODONE 5 MG PO (19:58)
[2025-03-08] MEDS: MIRAPEX, GENERIC 0.5 MG PO (21:57)
[2025-03-08] MEDS: SINGULAIR 10 MG PO (21:57)
[2025-03-08] MEDS: NEURONTIN 300 MG PO (21:57)
[2025-03-09] MEDS: TYLENOL PO ×3 (04:00→23:30)
[2025-03-09 07:00] VITALS: BP 155/83
[2025-03-09 07:42] LABS: Hemoglobin 9.7 g/dL (12.0-16.0)
[2025-03-09] MEDS: COLACE 100 MG PO ×2 (08:46→19:42)
[2025-03-09] MEDS: CALAN EXTENDED RELEASE 240 MG PO (08:46)
[2025-03-09] MEDS: ORETIC 25 MG PO (08:46)
[2025-03-09] MEDS: ASPIRIN 325 MG PO (08:46)
[2025-03-09] MEDS: PROTONIX 40 MG PO ×2 (08:46→19:43)
[2025-03-09] MEDS: TYLENOL 650 MG PO ×3 (08:46→18:09)
[2025-03-09] MEDS: SENOKOT 17.2 MG PO ×2 (08:46→19:43)
[2025-03-09] MEDS: CLARITIN 10 MG PO (08:46)
[2025-03-09] MEDS: CYMBALTA DELAYED RELEASE 20 MG PO (08:46)
[2025-03-09] MEDS: KCL 10 MEQ PO (08:46)
[2025-03-09] MEDS: VIBRAMYCIN 100 MG PO ×2 (08:46→19:43)
[2025-03-09] MEDS: CYANOCOBALAMIN 1000 MCG IM (08:47)
[2025-03-09] MEDS: ALDACTONE 25 MG PO (08:47)
[2025-03-09] MEDS: CELEBREX 200 MG PO (08:47)
[2025-03-09] MEDS: DECADRON 4 MG IV ×2 (08:48→19:42)
[2025-03-09] MEDS: FLORASTOR 250 MG PO ×2 (08:48→19:43)
--- NOTE | 2025-03-09 13:12 | W.PN.ORTHO ---
Today's Communication / Plan
-
79-year-old female POD #2 Right Reverse Total Shoulder Arthroplasty 03/07/[address] Scherer.
- NWB RUE. The sling will be used for two weeks for comfort followed by progressive physical therapy.
- PT/OT as tolerated.
- Ice and elevation for edema control. Pain medication regimen ordered. Encourage digital ROM as tolerated.
- Aspirin 325mg once daily x 4 weeks for DVT Prophylaxis.
- Hgb this AM 9.7. Continue to monitor and trend.
- Plan for D/C tomorrow to . Appreciate CM.
- Orthopedic surgery will continue to follow along.
Assessment
.
Distal Motor Intact: Yes
Dressing:
Mepilex dressing clean, dry, and intact. Sling with abductor pillow intact to RUE. Shoulder ROM deferred. Digital range of motion intact. Sensation intact to light touch. NVI distally. Capillary refill is less than 2 seconds.
Assessment:
POD #2 Right RTSA 03/07/[address] Scherer.
Plan
.
Surgery / Date: R Reverse TSA w/ Dr Scherer 03/07/25
DVT Prophylaxis: Aspirin
Activity:
Out of bed.
PT/OT.
Discharge Plan: SNF
Discharge Information:
Tuesday03/10/2025. Appreciate CM.
Subjective
.
.:
Patient resting comfortably in bedside chair eating lunch. Reports pain to her right shoulder, however controlled with current pain regimen. Denies any new complaints or concerns at this time. Awaiting SNF placement with plans for discharge
tomorrow to .
Vital Signs and Labs
.
Vital Signs and Labs:
Lab Results
03/09/25 05:30
02/25/25 08:03
Temp Pulse Resp BP Pulse Ox
97.7 F 74 18 155/83 96
03/09/25 07:00 03/09/25 07:00 03/09/25 07:00 03/09/25 07:00 03/09/25 08:00
[2025-03-09] MEDS: FERRLECIT 110 MG IV (13:33)
[2025-03-09 15:00] VITALS: BP 99/62
[2025-03-09] MEDS: MIRAPEX, GENERIC 0.5 MG PO (21:31)
[2025-03-09] MEDS: ROXICODONE 5 MG PO (21:31)
[2025-03-09] MEDS: NEURONTIN 300 MG PO (21:31)
[2025-03-09] MEDS: SINGULAIR 10 MG PO (21:31)
[2025-03-09 23:00] VITALS: BP 118/72
[2025-03-09 23:22] VITALS: PULSE 64
[2025-03-10] MEDS: TYLENOL PO (04:09)
[2025-03-10 07:00] VITALS: BP 141/77
[2025-03-10 07:46] LABS: Hemoglobin 9.8 g/dL (12.0-16.0)
--- NOTE | 2025-03-10 07:58 | W.PN.ORTHO ---
Today's Communication / Plan
-
79-year-old female POD #3 Right Reverse Total Shoulder Arthroplasty 03/07/[address] Scherer.
- NWB RUE. The sling will be used for two weeks for comfort followed by progressive physical therapy.
- PT/OT as tolerated.
- Ice and elevation for edema control. Pain medication regimen ordered. Encourage digital ROM as tolerated.
- Aspirin 325mg once daily x 4 weeks for DVT Prophylaxis.
- Hgb this AM 9.8, yesterday 9.7. VSS.
- Plan for D/C today to [facility]. Appreciate CM. D/C information completed.
- F/U as outpatient in 2 weeks for clinical examination.
Assessment
.
Distal Motor Intact: Yes
Dressing:
Mepilex dressing clean, dry, and intact. Sling with abductor pillow intact to RUE. Post-surgical ecchymosis about right brachium and upper arm. Shoulder ROM deferred. Digital range of motion intact. Sensation intact to light touch over the
axillary nerve distribution. NVI distally. Capillary refill is less than 2 seconds.
Assessment:
POD #3 Right RTSA 03/07/[address] Scherer.
Plan
.
Surgery / Date: R Reverse TSA w/ Dr Scherer 03/07/25
DVT Prophylaxis: Aspirin
Activity:
Out of bed.
PT/OT.
Discharge Plan: SNF
Discharge Information:
[facility] Today 03/10/2025. Appreciate CM.
Subjective
.
.:
Patient resting comfortably in bed. Reports that her right shoulder pain is well-controlled. Denies any numbness or tingling. Denies any new complaints or concerns at this time. Plan for discharge today to [facility].
Vital Signs and Labs
.
Vital Signs and Labs:
Lab Results
03/10/25 05:31
02/25/25 08:03
Temp Pulse Resp BP Pulse Ox
97.8 F 76 18 118/72 95
03/09/25 23:00 03/09/25 23:00 03/09/25 23:00 03/09/25 23:00 03/09/25 23:00
--- NOTE | 2025-03-10 08:05 | W.DS.TRANS ---
DC Summary - Transition Mgr Rn
-
Discharge Instructions:
Dictation # [id number]
Discharge Diagnosis/Procedures R shoulder OA with rotator cuff arthropathy s/p
R reverse TSA w/ Dr Scherer 03/07/25
Diet Regular
Activity As tolerated,With Walker
Additional Activity Non-weightbearing right upper extremity in sling
.
Driving Restrictions No driving
Bathing Restrictions OK to Shower
Other Services PT,OT
Wound Care Leave dressing on until seen by surgeon's office
for follow-up in 2 weeks.
Instructions:
Stand-Alone Forms: Total Shoulder Replacement D/C
Changes to Home Medications: No
Discharge Medications:
DC Medications w/original date entered in [facility]
duloxetine 20 mg capsule,delayed release 20 mg PO DAILY Mental Health/Anxiety 08/20/24
lansoprazole 30 mg capsule,delayed release 30 mg PO BID GERD 08/20/24
loratadine 10 mg tablet (Claritin) 10 mg PO DAILY Allergies 08/20/24
montelukast 10 mg tablet 10 mg PO HS ASTHMA 08/20/24
potassium chloride 10 mEq tablet,extended release(part/cryst) (Klor-Con M) 10 meq PO DAILY Supplement 08/20/24
pramipexole 0.5 mg tablet 0.5 mg PO HS RESTLESS LEG 08/20/24
azelastine 137 mcg (0.1 %) nasal spray 2 spray intranasal BID 02/22/25
fluticasone propionate 50 mcg/actuation nasal spray,suspension (Flonase Allergy Relief) 2 spray intranasal DAILY 02/22/25
gabapentin 300 mg capsule 300 mg PO HS sleep/pain #10 caps 02/25/25
mupirocin 2 % topical ointment 1 applic topical BID infection prevention #1 tube 02/25/25
ondansetron 4 mg disintegrating tablet 4 mg PO Q6H PRN n/v #20 tabs 02/25/25
Saccharomyces boulardii 250 mg capsule (Florastor) 250 mg PO BID #30 caps 03/07/25
acetaminophen 325 mg tablet 650 mg (2 x 325 mg) PO Q4HWA #60 tabs 03/07/25
aspirin 325 mg tablet 325 mg PO DAILY #1 tab 03/07/25
cyanocobalamin (vitamin B-12) 1,000 mcg sublingual tablet 1,000 mcg sublingual DAILY #60 tabs 03/07/25
docusate sodium 100 mg capsule 100 mg PO BID #30 caps 03/07/25
ferrous sulfate 325 mg (65 mg iron) tablet 325 mg PO DAILY #60 tabs 03/07/25
sennosides 8.6 mg tablet (Monica-ze) 17.2 mg (2 x 8.6 mg) PO BID #30 tabs 03/07/25
spironolactone 25 mg-hydrochlorothiazide 25 mg tablet 1 tab PO DAILY Fluid Retention/Swelling #1 tab 03/07/25
verapamil 240 mg tablet,extended release 240 mg PO DAILY Heart Disease/Condition #1 tab 03/07/25
celecoxib 200 mg capsule (Celebrex) 200 mg PO DAILY #10 caps 03/08/25
doxycycline hyclate 100 mg capsule 100 mg PO BID prophylaxis #6 caps 03/08/25
oxycodone 5 mg tablet 5 - 10 mg (1 - 2 x 5 mg) PO Q6H PRN moderate-severe pain #15 tabs 03/08/25
Home Medication Changes
Pending Results: No
Total time spent discharging patient (in min): 30 Minutes
[2025-03-10] MEDS: ORETIC PO (08:49)
[2025-03-10] MEDS: COLACE 100 MG PO (08:50)
[2025-03-10] MEDS: CELEBREX 200 MG PO (08:50)
[2025-03-10] MEDS: VIBRAMYCIN 100 MG PO (08:50)
[2025-03-10] MEDS: CYMBALTA DELAYED RELEASE 20 MG PO (08:50)
[2025-03-10] MEDS: TYLENOL 650 MG PO ×2 (08:50→12:26)
[2025-03-10] MEDS: CALAN EXTENDED RELEASE 240 MG PO (08:50)
[2025-03-10] MEDS: KCL 10 MEQ PO (08:50)
[2025-03-10] MEDS: CLARITIN 10 MG PO (08:50)
[2025-03-10] MEDS: FLORASTOR 250 MG PO (08:50)
[2025-03-10] MEDS: ALDACTONE PO (08:51)
[2025-03-10] MEDS: CYANOCOBALAMIN 1000 MCG IM (08:51)
[2025-03-10] MEDS: PROTONIX 40 MG PO (08:51)
[2025-03-10] MEDS: SENOKOT 17.2 MG PO (08:51)
[2025-03-10] MEDS: ASPIRIN 325 MG PO (08:51)
[2025-03-10] MEDS: DECADRON 4 MG IV (08:55)
[2025-03-10] MEDS: MIRALAX 17 GRAMS PO (09:10)
--- NOTE | 2025-03-10 09:51 | CM ---
Addendum entered by Miguelina Valentino RN 03/10/25 11:13:
Medical necessity and transport forms completed for transportation. Patient's daughter Monique notified of discharge.
Original Note:
Reviewed the chart and spoke with the patient at the bedside. IMM reviewed. Plan is to discharge today to [facility]. CM continues to be available to patient/family and is monitoring medical plan for needs at discharge.
Plan: Discharge to [facility] today.
Call report to: [phone]
Fax report to: [phone]
[2025-03-10 11:36] VITALS: BP 124/62
== END 2025-03-10 13:45 | DRG 483 ==
LOC: 2 SOUTH 08:37
PROVIDERS: Physician Assistant; ADMITTING PHYSICIAN Specialist; FAMILY PHYSICIAN Family Medicine; REFERRING PHYSICIAN Student in an Organized Health Care Education/Training Program
PROC: 0LS30ZZ Reposition Right Upper Arm Tendon, Open Approach (ICD-10-PCS; 2025-03-07)
PROC: 0RRJ00Z Replacement of Right Shoulder Joint with Reverse Ball and Socket Synthetic Substitute, Open Approach (ICD-10-PCS; 2025-03-07)
PROC: 5A09357 Assistance with Respiratory Ventilation, Less than 24 Consecutive Hours, Continuous Positive Airway Pressure (ICD-10-PCS; 2025-03-08)
DX: M19.011 Primary osteoarthritis, right shoulder (principal); Z68.42 Body mass index [BMI] 45.0-49.9, adult; E66.01 Morbid (severe) obesity due to excess calories; M17.0 Bilateral primary osteoarthritis of knee; I10 Essential (primary) hypertension; K21.9 Gastro-esophageal reflux disease without esophagitis; R13.10 Dysphagia, unspecified; J84.10 Pulmonary fibrosis, unspecified; G47.33 Obstructive sleep apnea (adult) (pediatric); R73.03 Prediabetes; G25.81 Restless legs syndrome; F32.A Depression, unspecified; F41.9 Anxiety disorder, unspecified; J45.909 Unspecified asthma, uncomplicated; D50.9 Iron deficiency anemia, unspecified; D51.9 Vitamin B12 deficiency anemia, unspecified; Z91.048 Other nonmedicinal substance allergy status; Z86.19 Personal history of other infectious and parasitic diseases; Z86.79 Personal history of other diseases of the circulatory system
CPT/HCPCS: 36415; 73020; 80053; 82607; 82728; 83036; 83540; 83550; 85018; 85027; 86850; 86900; 86901; 87070; 94640; 94660; 97110; 97116; 97163; 97167; 97530; 97535; J2916

== ENCOUNTER → 2025-03-13 10:56 | Outpatient (REF) | payer OTHER, MEDICARE, SELFPAY ==
[2025-03-13 11:20] LABS: Hematocrit 36.8 % (37.0-47.0); Hemoglobin 11.6 g/dL (12.0-16.0); Mean Corp Hgb Conc. 31.5 g/dL (33.0-37.0); Mean Corpuscular Hgb 28.4 pg (27.0-31.0); Mean Platelet Volume 10.1 fL (7.4-10.4); Platelet Count 288 10^3/uL (130-400); Red Blood Cell Count 4.09 10^6/uL (4.20-5.40); Red Cell Dist. Width 17.2 % (11.5-14.5)
[2025-03-13 11:41] LABS: Blood Urea Nitrogen 39 mg/dl (7-17); Calcium 8.5 mg/dl (8.4-10.2); Carbon Dioxide 22 mmol/L (22-30); Chloride 105 mmol/L (98-107); Glucose 171 mg/dl (70-99); Sodium 139 mmol/L (135-145); eGFR > 60.00
[2025-03-13 11:50] LABS: % Basophils 0.3 % (0-2); % Eosinophils 0.1 % (0-6); % Immature Granulocytes 2.7 % (0-0.5); % Lymphocytes 2.2 % (20.5-51.1); % Monocytes 3.5 % (1.7-9.3); % Neutrophils 91.2 % (42.2-75.2); Absolute Basophils 0.1 10^3/uL (0-0.2); Absolute Immature Granulocytes 0.6 10^3/uL (0-0.05); Absolute Lymphocytes 0.5 10^3/uL (1.2-3.4); Absolute Monocytes 0.8 10^3/uL (0.1-0.6); Nucleated Red Blood Cells % 0 %
[2025-03-13 11:56] LABS: Potassium 4.4 mmol/L (3.5-5.1)
== END ==
LOC: OLABP 10:56
PROVIDERS: ATTENDING PHYSICIAN Family Medicine
DX: I10 Essential (primary) hypertension (principal); R13.10 Dysphagia, unspecified; R06.09 Other forms of dyspnea; Z47.1 Aftercare following joint replacement surgery; D50.8 Other iron deficiency anemias; M19.011 Primary osteoarthritis, right shoulder; D51.3 Other dietary vitamin B12 deficiency anemia; G47.33 Obstructive sleep apnea (adult) (pediatric); F41.3 Other mixed anxiety disorders; F33.9 Major depressive disorder, recurrent, unspecified; Z68.42 Body mass index [BMI] 45.0-49.9, adult; M62.59 Muscle wasting and atrophy, not elsewhere classified, multiple sites; R26.2 Difficulty in walking, not elsewhere classified
CPT/HCPCS: 36415; 80048; 85025

== ENCOUNTER → 2025-03-15 10:39 | Outpatient (REF) | payer OTHER, MEDICARE, SELFPAY ==
[2025-03-15 11:34] LABS: % Basophils 0.5 % (0-2); % Eosinophils 1.4 % (0-6); % Lymphocytes 16.6 % (20.5-51.1); % Monocytes 8.2 % (1.7-9.3); % Neutrophils 69.3 % (42.2-75.2); Absolute Basophils 0.1 10^3/uL (0-0.2); Absolute Eosinophils 0.1 10^3/uL (0-0.7); Absolute Immature Granulocytes 0.4 10^3/uL (0-0.05); Absolute Lymphocytes 1.6 10^3/uL (1.2-3.4); Absolute Monocytes 0.8 10^3/uL (0.1-0.6); Absolute Neutrophils 6.6 10^3/uL (1.4-6.5); Hematocrit 29.5 % (37.0-47.0); Hemoglobin 9.6 g/dL (12.0-16.0); Mean Corp Hgb Conc. 32.5 g/dL (33.0-37.0); Mean Corpuscular Hgb 28.9 pg (27.0-31.0); Mean Corpuscular Volume 88.9 fL (81.0-99.0); Mean Platelet Volume 10.9 fL (7.4-10.4); Nucleated Red Blood Cells % 0 %; Platelet Count 231 10^3/uL (130-400); Red Blood Cell Count 3.32 10^6/uL (4.20-5.40); Red Cell Dist. Width 17.1 % (11.5-14.5); White Blood Cell Count 9.5 10^3/uL (4.8-10.8)
== END ==
LOC: OLABP 10:39
PROVIDERS: ATTENDING PHYSICIAN Family Medicine
DX: Z47.1 Aftercare following joint replacement surgery (principal); M19.011 Primary osteoarthritis, right shoulder; D50.8 Other iron deficiency anemias; D51.3 Other dietary vitamin B12 deficiency anemia; G47.33 Obstructive sleep apnea (adult) (pediatric); F41.3 Other mixed anxiety disorders; F33.9 Major depressive disorder, recurrent, unspecified; G25.81 Restless legs syndrome; E66.9 Obesity, unspecified; M62.59 Muscle wasting and atrophy, not elsewhere classified, multiple sites; R26.2 Difficulty in walking, not elsewhere classified; R13.10 Dysphagia, unspecified; R06.09 Other forms of dyspnea; I11.0 Hypertensive heart disease with heart failure; Z68.42 Body mass index [BMI] 45.0-49.9, adult
CPT/HCPCS: 36415; 85025

== ENCOUNTER → 2025-03-18 10:03 | Outpatient (REF) | payer OTHER, MEDICARE, SELFPAY ==
[2025-03-18 10:59] LABS: % Basophils 0.5 % (0-2); % Eosinophils 1.5 % (0-6); % Lymphocytes 16.6 % (20.5-51.1); % Monocytes 6.4 % (1.7-9.3); Absolute Basophils 0.1 10^3/uL (0-0.2); Absolute Eosinophils 0.2 10^3/uL (0-0.7); Absolute Immature Granulocytes 0.3 10^3/uL (0-0.05); Absolute Lymphocytes 1.6 10^3/uL (1.2-3.4); Absolute Monocytes 0.6 10^3/uL (0.1-0.6); Hematocrit 30.8 % (37.0-47.0); Hemoglobin 9.6 g/dL (12.0-16.0); Mean Corp Hgb Conc. 31.2 g/dL (33.0-37.0); Mean Corpuscular Hgb 28.2 pg (27.0-31.0); Mean Corpuscular Volume 90.6 fL (81.0-99.0); Mean Platelet Volume 10.1 fL (7.4-10.4); Nucleated Red Blood Cells % 0 %; Platelet Count 227 10^3/uL (130-400); White Blood Cell Count 9.8 10^3/uL (4.8-10.8)
[2025-03-18 11:59] LABS: Iron 50 ug/dl (37-170)
== END ==
LOC: OLABP 10:03
PROVIDERS: ATTENDING PHYSICIAN Family Medicine
DX: R47.1 Dysarthria and anarthria (principal); M19.011 Primary osteoarthritis, right shoulder; D50.8 Other iron deficiency anemias; D51.3 Other dietary vitamin B12 deficiency anemia; G47.33 Obstructive sleep apnea (adult) (pediatric); F41.3 Other mixed anxiety disorders; F33.9 Major depressive disorder, recurrent, unspecified; G25.81 Restless legs syndrome; E66.9 Obesity, unspecified; M62.59 Muscle wasting and atrophy, not elsewhere classified, multiple sites; R26.2 Difficulty in walking, not elsewhere classified; R13.10 Dysphagia, unspecified; R06.09 Other forms of dyspnea; I10 Essential (primary) hypertension; Z68.42 Body mass index [BMI] 45.0-49.9, adult
CPT/HCPCS: 36415; 82728; 83540; 85025

== ENCOUNTER → 2025-03-29 12:57 | Outpatient (REF) | payer OTHER, MEDICARE, SELFPAY ==
[2025-03-29 13:31] LABS: % Basophils 0.8 % (0-2); % Eosinophils 2.4 % (0-6); % Immature Granulocytes 1.4 % (0-0.5); % Lymphocytes 17.7 % (20.5-51.1); % Monocytes 8.6 % (1.7-9.3); % Neutrophils 69.1 % (42.2-75.2); Absolute Basophils 0.1 10^3/uL (0-0.2); Absolute Eosinophils 0.2 10^3/uL (0-0.7); Absolute Immature Granulocytes 0.1 10^3/uL (0-0.05); Absolute Lymphocytes 1.6 10^3/uL (1.2-3.4); Absolute Monocytes 0.8 10^3/uL (0.1-0.6); Absolute Neutrophils 6.4 10^3/uL (1.4-6.5); Hematocrit 29.2 % (37.0-47.0); Hemoglobin 9.1 g/dL (12.0-16.0); Mean Corp Hgb Conc. 31.2 g/dL (33.0-37.0); Mean Corpuscular Hgb 28.7 pg (27.0-31.0); Mean Corpuscular Volume 92.1 fL (81.0-99.0); Mean Platelet Volume 10.4 fL (7.4-10.4); Nucleated Red Blood Cells % 0 %; Platelet Count 289 10^3/uL (130-400); Red Blood Cell Count 3.17 10^6/uL (4.20-5.40); White Blood Cell Count 9.2 10^3/uL (4.8-10.8)
[2025-03-29 13:57] LABS: Blood Urea Nitrogen 16 mg/dl (7-17); Calcium 8.8 mg/dl (8.4-10.2); Carbon Dioxide 28 mmol/L (22-30); Chloride 101 mmol/L (98-107); Glucose 101 mg/dl (70-99); Potassium 4.2 mmol/L (3.5-5.1); Sodium 137 mmol/L (135-145); eGFR > 60.00
== END ==
LOC: OLABP 12:57
PROVIDERS: ATTENDING PHYSICIAN Family Medicine
DX: M19.011 Primary osteoarthritis, right shoulder (principal); D50.8 Other iron deficiency anemias; G47.33 Obstructive sleep apnea (adult) (pediatric); F41.3 Other mixed anxiety disorders; F33.9 Major depressive disorder, recurrent, unspecified
CPT/HCPCS: 36415; 80048; 85025

== ENCOUNTER → 2025-04-03 11:33 | Outpatient (REF) | payer OTHER, MEDICARE, SELFPAY ==
[2025-04-03 13:00] LABS: % Basophils 0.5 % (0-2); % Eosinophils 3.7 % (0-6); % Immature Granulocytes 3.3 % (0-0.5); % Lymphocytes 17.1 % (20.5-51.1); % Monocytes 7.2 % (1.7-9.3); % Neutrophils 68.2 % (42.2-75.2); Absolute Basophils 0.1 10^3/uL (0-0.2); Absolute Eosinophils 0.4 10^3/uL (0-0.7); Absolute Immature Granulocytes 0.3 10^3/uL (0-0.05); Absolute Lymphocytes 1.6 10^3/uL (1.2-3.4); Absolute Monocytes 0.7 10^3/uL (0.1-0.6); Absolute Neutrophils 6.4 10^3/uL (1.4-6.5); Hemoglobin 8.9 g/dL (12.0-16.0); Mean Corp Hgb Conc. 30.7 g/dL (33.0-37.0); Mean Corpuscular Hgb 28.5 pg (27.0-31.0); Mean Corpuscular Volume 92.9 fL (81.0-99.0); Mean Platelet Volume 9.8 fL (7.4-10.4); Nucleated Red Blood Cells % 0 %; Platelet Count 308 10^3/uL (130-400); Red Blood Cell Count 3.12 10^6/uL (4.20-5.40); Red Cell Dist. Width 16.9 % (11.5-14.5); White Blood Cell Count 9.4 10^3/uL (4.8-10.8)
== END ==
LOC: OLABP 11:33
PROVIDERS: ATTENDING PHYSICIAN Family Medicine
DX: Z47.1 Aftercare following joint replacement surgery (principal); M19.011 Primary osteoarthritis, right shoulder; G47.33 Obstructive sleep apnea (adult) (pediatric); F41.3 Other mixed anxiety disorders; F33.9 Major depressive disorder, recurrent, unspecified; G25.81 Restless legs syndrome; E66.9 Obesity, unspecified; M62.59 Muscle wasting and atrophy, not elsewhere classified, multiple sites; R26.2 Difficulty in walking, not elsewhere classified; R13.10 Dysphagia, unspecified; R06.09 Other forms of dyspnea; I10 Essential (primary) hypertension; Z68.42 Body mass index [BMI] 45.0-49.9, adult
CPT/HCPCS: 36415; 85025

== ENCOUNTER → 2025-04-08 11:49 | Outpatient (REF) | payer OTHER, MEDICARE, SELFPAY ==
[2025-04-08 12:30] LABS: % Basophils 0.7 % (0-2); % Eosinophils 2.7 % (0-6); % Immature Granulocytes 2.8 % (0-0.5); % Lymphocytes 13.5 % (20.5-51.1); % Monocytes 7.1 % (1.7-9.3); % Neutrophils 73.2 % (42.2-75.2); Absolute Basophils 0.1 10^3/uL (0-0.2); Absolute Eosinophils 0.3 10^3/uL (0-0.7); Absolute Immature Granulocytes 0.3 10^3/uL (0-0.05); Absolute Lymphocytes 1.4 10^3/uL (1.2-3.4); Absolute Monocytes 0.8 10^3/uL (0.1-0.6); Absolute Neutrophils 7.7 10^3/uL (1.4-6.5); Hematocrit 30.5 % (37.0-47.0); Hemoglobin 9.6 g/dL (12.0-16.0); Mean Corp Hgb Conc. 31.5 g/dL (33.0-37.0); Mean Corpuscular Hgb 28.7 pg (27.0-31.0); Mean Corpuscular Volume 91.3 fL (81.0-99.0); Mean Platelet Volume 9.7 fL (7.4-10.4); Nucleated Red Blood Cells % 0 %; Platelet Count 291 10^3/uL (130-400); Red Blood Cell Count 3.34 10^6/uL (4.20-5.40); Red Cell Dist. Width 17.1 % (11.5-14.5); White Blood Cell Count 10.5 10^3/uL (4.8-10.8)
[2025-04-08 13:18] LABS: Blood Urea Nitrogen 17 mg/dl (7-17); Calcium 8.8 mg/dl (8.4-10.2); Carbon Dioxide 28 mmol/L (22-30); Chloride 104 mmol/L (98-107); Glucose 94 mg/dl (70-99); Sodium 139 mmol/L (135-145); eGFR > 60.00
== END ==
LOC: OLABP 11:49
PROVIDERS: ATTENDING PHYSICIAN Family Medicine
DX: M19.011 Primary osteoarthritis, right shoulder (principal); D50.8 Other iron deficiency anemias; G47.33 Obstructive sleep apnea (adult) (pediatric); F41.3 Other mixed anxiety disorders; F33.9 Major depressive disorder, recurrent, unspecified; G25.81 Restless legs syndrome; E66.9 Obesity, unspecified; M62.59 Muscle wasting and atrophy, not elsewhere classified, multiple sites; R26.2 Difficulty in walking, not elsewhere classified; R13.10 Dysphagia, unspecified; R06.09 Other forms of dyspnea; I10 Essential (primary) hypertension; Z68.42 Body mass index [BMI] 45.0-49.9, adult
CPT/HCPCS: 36415; 80048; 85025